=== PATIENT | male | born 1985 | race Caucasian/White ===

== ENCOUNTER 2016-07-28 19:12 | Emergency (ER) | payer OTHER ==
[~2016-07-28] VITALS: Ht 177.8 cm; Wt 90.3 kg
[~2016-07-28 19:12] MED LIST: AMPH20TA2 PO; ATV/1 PO; BUSP-8 PO; HYDR-389 PO; HYOS1TAB PO; INDSR/120 PO; LAMO25TA PO; PRT40 PO; SUMA20SP; WLLSR/300 PO
[2016-07-28 19:23] VITALS: TEMP 37; Ht 177.8 cm; Wt 90.3 kg
[2016-07-28] MEDS ORDERED: PROMETHAZINE HCL INJ 25 MG/ML 1 ML VIAL IM STA (19:40)
[2016-07-28] MEDS ORDERED: KETOROLAC TROMETHAMINE 60 MG/2 ML VIAL IM STA (19:40)
[2016-07-28] MEDS ORDERED: DEXAMETHASONE SOD INJ 10 MG/ML VIAL IM ONE (19:45)
--- NOTE | 2016-07-28 19:48 | EMERGENCY ROOM VISIT NOTE ---
History Report prepared by Zack: Raul Yang Under the Supervision of: Dr. Cihki Luciano D.O. First contact with patient: 19:30 Chief Complaint: HEADACHE Stated Complaint: MIGRAINE,NAUSEA History of Present Illness The patient is a 31 year old male who presents to the Emergency Room with complaints of persistent migraine that started last night. He was unable to sleep last night and the discomfort persisted throughout the day today. The patient also complains of nausea and numbness around his left eye. The patient notes that he has a history of migraines for the past 3-4 years and is typically able to manage them at home. The patient presented to the ED this evening because his head pain and nausea was worse than normal. This is the first migraine that he has had to come to the ED for managing his symptoms. The patient has tried numerous medications and treatments for his migraine without much relief. He denies fever. Source of History: patient Onset: last night Position: head Timing: other (persistent) Associated Symptoms: + nausea, No fevers Note: Other associated symptoms: numbness around left eye Review of Systems See HPI for pertinent positives & negatives. A total of 10 systems reviewed and were otherwise negative. Past Medical & Surgical Medical Problems: (1) Acid reflux (2) Anxiety (3) Attention deficit hyperactivity disorder (4) Encounter for removal of sutures (5) Foreign body, eye (6) Foreign body, eye (7) Gastroesophageal reflux disease (8) Injury of right foot (9) IRRITABLE BOWEL SYNDROME (10) Kidney stone (11) Kidney stone (12) Laceration of left foot (13) Laceration of left foot (14) Urinary retention Family History FH: cancer FH: diabetes mellitus FH: gallbladder disease FH: heart disease FH: hypertension FH: lung disease FH: seizures No significant family history Social History Smoking Status: Never Smoker Alcohol Use: none Drug Use: none Marital Status: Housing Status: lives with family Occupation Status: disabled Current/Historical Medications Scheduled Amphetamine-Dextroamphetamine 10MG (Adderall Xr 10MG), 10 MG PO DAILY Amphetamine-Dextroamphetamine 30MG (Adderall Xr 30MG), 30 MG PO DAILY Buspirone Hcl (Buspirone Hcl), 10 MG PO BID Dexlansoprazole (Dexilant), 30 MG PO DAILY Hydroxyzine Hcl (Atarax), 20 MG PO HS L-Methylfolate (L-Methylfolate), 15 MG PO DAILY Lamotrigine (Lamictal), 25 MG PO BID Propranolol La (Inderal La), 120 MG PO QAM Ropinirole Hydrochloride (Requip), 0.5 MG PO BID Scheduled PRN Hydroxyzine HCl (Hydroxyzine HCl), 5-10 MG PO Q4 PRN for Anxiety Sumatriptan Succinate (Imitrex Nasal Kopperl), 1 SPRAY NA UD PRN for Migraine Allergies Coded Allergies: Tramadol (Unverified Allergy, Intermediate, HALLUCINATIONS, 07/28/16) Hydrocodone (Verified Adverse Reaction, Unknown, "SEES LITTLE GREEN MARTAINS, ROOM SPINS", 07/28/16) Physical Exam Vital Signs Date Time Temp Pulse Resp B/P Pulse Ox O2 Delivery O2 Flow Rate FiO2 07/28/16 20:28 73 18 119/82 96 Room Air 07/28/16 19:23 37.0 77 18 133/88 95 Room Air Physical Exam GENERAL: Patient is awake alert in no acute distress patient is resting comfortably and showing no signs of anxiety EYES: The conjunctivae are clear. The pupils are round and reactive. EARS, NOSE, MOUTH AND THROAT: The nose is without any evidence of any deformity. Mucous membranes are moist tongue is midline NECK: The neck is nontender and supple. RESPIRATORY: Normal respiratory effort is noted there is no evidence of wheezing rhonchi or rales CARDIOVASCULAR: Regular rate and rhythm noted there no murmurs rubs or gallops normal S1 normal S2 GASTROINTESTINAL: The abdomen is soft. Bowel sounds are present in all quadrants. Abdomen is nontender MUSCULOSKELETAL/EXTREMITIES: There is no evidence of gross deformity full range of motion is noted in the hips and shoulders SKIN: There is no obvious evidence of any rash. There are no petechiae, pallor or cyanosis noted. NEUROLOGIC: Patient is awake alert and oriented x3 strength is symmetric patellar reflexes are 2+ bilaterally Medical Decision & Procedures ER Provider Diagnostic Interpretation: X-ray results as stated below per interpretation by me and the radiologist. HEAD CT NONCONTRAST CT DOSE: 687.98 mGy.cm HISTORY: Left-sided headache. TECHNIQUE: Multiaxial CT images of the head were performed without the use of intravenous contrast. Automated exposure control was utilized for this study. Comparison: None. Findings: The paranasal sinuses and mastoid air cells are clear. The calvarium and skull base are intact. The ventricles and sulci are within normal limits. There is no mass, hematoma, midline shift, or acute infarct. Impression: No acute intracranial abnormality. Electronically signed by: Elliot Gonzalez M.D. 07/28/2016 8:15 PM Dictated Date/Time: 07/28/2016 8:11 PM Medications Administered Medications (Trade) Dose Ordered Sig/Kaden Route Start Time Stop Time Status Last Admin Dose Admin Promethazine HCl (Phenergan Inj) 25 mg NOW STAT IM 07/28/16 19:40 07/28/16 19:41 DC 07/28/16 19:54 25 MG Ketorolac Tromethamine (Toradol Inj) 60 mg NOW STAT IM 07/28/16 19:40 07/28/16 19:41 DC 07/28/16 19:56 60 MG Dexamethasone Sodium Phosphate (Decadron Inj) 10 mg NOW ONCE IM 07/28/16 19:45 07/28/16 19:46 DC 07/28/16 19:52 10 MG ED Course 193: The patient was evaluated in room A4. A complete history and physical examination were performed. 1939: Ordered Toradol Inj 60 mg IM, Phenergan Inj 25 mg IM. 1944: Ordered Decadron Inj 10 mg IM, Oxycodone HCl 1 homepack PO. 1999: Upon reevaluation, the patient is resting comfortably. I discussed the results and treatment plan with him. He verbalized agreement of the treatment plan. The patient was discharged home. Medical Decision Differential diagnosis: Etiologies such as migraine headache, meningitis, sinusitis, CO exposure, ICH, SAH, infection, tumor, headache, sinus thrombosis, arterial dissection, as well as others were entertained. Nursing notes reviewed. The patient is a 31-year-old male who presented to the emergency department for an evaluation of headache. The patient had a gradual onset of a headache which is consistent with his history of previous chronic headache syndrome. The patient tried his usual outpatient medication without relief. He presented to the emergency department this evening with worsening pain. The patient had no focal neurologic deficit. He had no meningismus or fever. He has not had neuro imaging in quite some time so CT the head was obtained. I discussed the patient' s radiographic studies with him. He was treated with medication for pain and nausea in the emergency department. On subsequent reevaluation he was feeling much better. He was encouraged to rest and avoid any strenuous activity. He was encouraged to continue all medications as prescribed. He was also encouraged to follow-up with his primary care physician this week for reevaluation but return to the emergency department immediately if symptoms change worsen or if the need arises. Impression Primary Impression: Migraine headache Scribe Attestation The scribe's documentation has been prepared under my direction and personally reviewed by me in its entirety. I confirm that the note above accurately reflects all work, treatment, procedures, and medical decision making performed by me. Departure Information Dispostion Home / Self-Care Referrals No Doctor, Assigned (PCP) Forms HOME CARE DOCUMENTATION FORM, IMPORTANT VISIT INFORMATION Patient Instructions A Signature Page, My [facility] Additional Instructions Continue all medications as prescribed. Call your doctor to schedule a follow- up appointment. Rest and avoid any strenuous activity. Return to the emergency department immediately if symptoms change worsen or if the need arises.
[2016-07-28] MEDS ORDERED: ATR10 PO (19:58)
--- NOTE | 2016-07-28 20:17 | DIAGNOSTIC IMAGING REPORT ---
HEAD CT NONCONTRAST CT DOSE: 687.98 mGy.cm HISTORY: Left-sided headache. TECHNIQUE: Multiaxial CT images of the head were performed without the use of intravenous contrast. Automated exposure control was utilized for this study. Comparison: None. Findings: The paranasal sinuses and mastoid air cells are clear. The calvarium and skull base are intact. The ventricles and sulci are within normal limits. There is no mass, hematoma, midline shift, or acute infarct. Impression: No acute intracranial abnormality. Electronically signed by: Elliot Gonzalez M.D. 07/28/2016 8:15 PM Dictated Date/Time: 07/28/2016 8:11 PM
[2016-07-28] MEDS ORDERED: OXYCODONE IR HOME PACK PO ONE (20:45)
[2016-07-28 20:55] VITALS: BP 136/83; PULSE 73; O2SAT 97
[2016-08-10] MEDS ORDERED: DEXL30CA5 PO (19:58)
[2016-08-10] MEDS ORDERED: AMPH30CA3 PO (19:58)
[2016-08-10] MEDS ORDERED: [UNRECOGNIZED DRUG - OTHER] PO (19:58)
[2016-08-10] MEDS ORDERED: AMPH10CA3 PO (19:58)
[2016-12-14] MEDS ORDERED: DULO60CA44 PO (08:12)
[2016-12-14] MEDS ORDERED: BUPR150T5 PO (08:12)
== END 2016-07-28 20:57 | disposition home or self-care (01) ==
LOC: C.EDB 19:12 → C.EDA 20:57
DX: G43.909 Migraine, unspecified, not intractable, without status migrainosus (principal); R11.0 Nausea; K21.9 Gastro-esophageal reflux disease without esophagitis; F41.9 Anxiety disorder, unspecified; F90.9 Attention-deficit hyperactivity disorder, unspecified type; K58.9 Irritable bowel syndrome, unspecified; Z87.442 Personal history of urinary calculi; Z87.828 Personal history of other (healed) physical injury and trauma; Z79.899 Other long term (current) drug therapy; Z88.5 Allergy status to narcotic agent; Z80.9 Family history of malignant neoplasm, unspecified; Z83.3 Family history of diabetes mellitus; Z83.79 Family history of other diseases of the digestive system; Z82.49 Family history of ischemic heart disease and other diseases of the circulatory system; Z82.0 Family history of epilepsy and other diseases of the nervous system

== ENCOUNTER 2016-08-10 20:38 | Emergency (ER) | payer OTHER ==
[~2016-08-10] VITALS: Ht 177.8 cm; Wt 91.8 kg
[~2016-08-10 20:38] MED LIST changes: +AMPH10CA3 PO; -AMPH20TA2 PO; +AMPH30CA3 PO; +ATR10 PO; -ATV/1 PO; +DEXL30CA5 PO; -HYOS1TAB PO; -PRT40 PO; -WLLSR/300 PO; +[UNRECOGNIZED DRUG - OTHER] PO
[2016-08-10 20:43] VITALS: TEMP 36.9; Ht 177.8 cm; Wt 91.8 kg
[2016-08-10] MEDS ORDERED: KETOROLAC TROMETHAMINE 30 MG/ML VIAL IV STA (20:56)
[2016-08-10] MEDS ORDERED: ACETAMINOPHEN 500 MG TAB PO STA (20:56)
[2016-08-10] MEDS ORDERED: SODIUM CHLORIDE 0.9% 1000ML 1,000 ML IV STA (20:56)
[2016-08-10] MEDS ORDERED: ONDANSETRON INJ 2 MG/ML 2 ML VIAL IV STA (20:56)
[2016-08-10 21:06] LABS: BASO % 0.3 %; BASO ABS # 0.02 K/uL (0-0.2); COMPLETE YES; EOS % 2.5 %; HEMATOCRIT 44.2 % (42-52); IG% 0.2 %; LYMPH % 32.9 %; LYMPH ABS # 1.95 K/uL (1.2-3.4); MEAN CELL VOLUME 89.7 fL (80-100); MEAN CORPUSCULAR HEMOGLOBIN 31.8 pg (25-34); MEAN CORPUSCULAR HGB CONC 35.5 g/dl (32-36); MEAN PLATELET VOLUME 10.3 fL (7.4-10.4); NEUT % 55.1 %; PLATELET COUNT 213 K/uL (130-400); RED BLOOD COUNT 4.93 M/uL (4.7-6.1); WHITE BLOOD COUNT 5.92 K/uL (4.8-10.8)
--- NOTE | 2016-08-10 21:14 | EMERGENCY ROOM VISIT NOTE ---
History Report prepared by Zack: Thom Cortes Under the Supervision of: Dr. Sarah Onofre M.D. First contact with patient: 20:47 Chief Complaint: FLANK PAIN Stated Complaint: PAIN IN LEFT SIDE, KIDNEY STONE? History of Present Illness The patient is a 31 year old male who presents to the Emergency Room with complaints of persistent left flank pain that started 2 days ago. He also complains of hematuria. The patient has a history of kidney stones, and his last one was 2 years ago. He also has a history of IBS and peptic ulcers. The patient believes he may be having another kidney stone. He has an appointment with his urologist in 10 days, but decided to come here due to his symptoms. Source of History: patient Onset: 2 days ago Position: other (left flank - pain) Timing: other (persistent) Associated Symptoms: + urinary symptoms (hematuria) Note: No other associated symptoms noted. Review of Systems See HPI for pertinent positives & negatives. A total of 10 systems reviewed and were otherwise negative. Past Medical & Surgical Medical Problems: (1) Acid reflux (2) Anxiety (3) Attention deficit hyperactivity disorder (4) Encounter for removal of sutures (5) Foreign body, eye (6) Foreign body, eye (7) Gastroesophageal reflux disease (8) Injury of right foot (9) IRRITABLE BOWEL SYNDROME (10) Kidney stone (11) Kidney stone (12) Laceration of left foot (13) Laceration of left foot (14) Urinary retention Family History FH: cancer FH: diabetes mellitus FH: gallbladder disease FH: heart disease FH: hypertension FH: lung disease FH: seizures No significant family history Social History Smoking Status: Current Every Day Smoker Alcohol Use: none Drug Use: none Marital Status: Housing Status: lives with family Occupation Status: disabled Current/Historical Medications Scheduled Amphetamine-Dextroamphetamine 10MG (Adderall Xr 10MG), 10 MG PO QAM Amphetamine-Dextroamphetamine 30MG (Adderall Xr 30MG), 30 MG PO QAM Bupropion HCl (Bupropion HCl Xl), 300 MG PO QAM Buspirone HCl (Buspirone HCl), 10 MG PO BID Dexlansoprazole (Dexilant), 30 MG PO DAILY L-Methylfolate (L-Methylfolate), 15 MG PO DAILY Lamotrigine (Lamotrigine), 25 MG PO BID Propranolol Hcl (Propranolol Hcl Er), 120 MG PO QAM Tamsulosin Hcl (Flomax), 0.4 MG PO DAILY Scheduled PRN Ibuprofen (Motrin), 600 MG PO Q6H PRN for Pain Ondansetron Hcl (Zofran), 4 MG PO Q8H PRN for Nausea Ropinirole Hydrochloride (Requip), 0.5 MG PO BID PRN for Restless Legs Sumatriptan Succinate (Sumatriptan), 1 SPRAY NA UD PRN for Migraine Trazodone Hcl (Trazodone), 25-50 MG PO HS PRN for Sleep Allergies Coded Allergies: Tramadol (Unverified Allergy, Intermediate, HALLUCINATIONS, 07/28/16) Hydrocodone (Verified Adverse Reaction, Unknown, "SEES LITTLE GREEN MARTAINS, ROOM SPINS", 07/28/16) Physical Exam Vital Signs Date Time Temp Pulse Resp B/P Pulse Ox O2 Delivery O2 Flow Rate FiO2 08/10/16 22:33 84 16 126/78 99 08/10/16 20:43 36.9 92 18 139/82 95 Room Air Physical Exam CONSTITUTIONAL: Moderate painful distress. HEENT: No icterus, moist mucous membranes NECK: No meningismus, trachea is midline. CARDIOVASCULAR: Regular rate, normal perfusion RESPIRATORY: Unlabored breathing. Clear to auscultation. GASTROINTESTINAL: Non-tender GENITOURINARY: Moderate left flank tenderness. MUSCULOSKELETAL: Full range of motion NEUROLOGIC: No acute gross focal deficits. PSYCHIATRIC: Normal affect SKIN: Normal for ethnicity. Medical Decision & Procedures ER Provider Diagnostic Interpretation: US results as stated below per my review and radiologist interpretation. EXAMINATION: RENAL ULTRASOUND CLINICAL HISTORY: Left flank pain COMPARISON STUDY: KUB dated 07/19/2015 FINDINGS: The right kidney measures 10.1 cm. The left kidney measures 10.4 cm. There is no evidence of hydronephrosis. There are no renal masses. No bladder abnormalities are visualized. Bilateral ureteral jets were visualized. Incidental note is made of increased echogenicity of the liver, possibly secondary to hepatic steatosis IMPRESSION : 1. No renal masses identified 2. No evidence of hydronephrosis. Bilateral ureteral jets were visualized. Electronically signed by: Sp Alvarado M.D. 08/10/2016 10:25 PM Dictated Date/Time: 08/10/2016 10:23 PM Laboratory Results 08/10/16 20:55 Red Blood Count 4.93, Mean Corpuscular Volume 89.7, Mean Corpuscular Hemoglobin 31.8, Mean Corpuscular Hemoglobin Concent 35.5, Mean Platelet Volume 10.3, Neutrophils (%) (Auto) 55.1, Lymphocytes (%) (Auto) 32.9, Monocytes (%) (Auto) 9.0, Eosinophils (%) (Auto) 2.5, Basophils (%) (Auto) 0.3, Neutrophils # (Auto) 3.26, Lymphocytes # (Auto) 1.95, Monocytes # (Auto) 0.53, Eosinophils # (Auto) 0.15, Basophils # (Auto) 0.02 08/10/16 20:55 Test 08/10/16 00:00 08/10/16 20:55 Urine Color YELLOW Urine Appearance CLEAR (CLEAR) Urine pH 6.0 (4.5-7.5) Urine Specific [place] 1.008 (1.000-1.030) Urine Protein NEG (NEG) Urine Glucose (UA) NEG (NEG) Urine Ketones NEG (NEG) Urine Occult Blood NEG (NEG) Urine Nitrite NEG (NEG) Urine Bilirubin NEG (NEG) Urine Urobilinogen NEG (NEG) Urine Leukocyte Esterase TRACE (NEG) Urine WBC (Auto) 1-5 /hpf (0-5) Urine RBC (Auto) 0-4 /hpf (0-4) Urine Hyaline Casts (Auto) 0 /lpf (0-5) Urine Epithelial Cells (Auto) 0-5 /lpf (0-5) Urine Bacteria (Auto) NEG (NEG) White Blood Count 5.92 K/uL (4.8-10.8) Red Blood Count 4.93 M/uL (4.7-6.1) Hemoglobin 15.7 g/dL (14.0-18.0) Hematocrit 44.2 % (42-52) Mean Corpuscular Volume 89.7 fL (80-100) Mean Corpuscular Hemoglobin 31.8 pg (25-34) Mean Corpuscular Hemoglobin Concent 35.5 g/dl (32-36) Platelet Count 213 K/uL (130-400) Mean Platelet Volume 10.3 fL (7.4-10.4) Neutrophils (%) (Auto) 55.1 % Lymphocytes (%) (Auto) 32.9 % Monocytes (%) (Auto) 9.0 % Eosinophils (%) (Auto) 2.5 % Basophils (%) (Auto) 0.3 % Neutrophils # (Auto) 3.26 K/uL (1.4-6.5) Lymphocytes # (Auto) 1.95 K/uL (1.2-3.4) Monocytes # (Auto) 0.53 K/uL (0.11-0.59) Eosinophils # (Auto) 0.15 K/uL (0-0.5) Basophils # (Auto) 0.02 K/uL (0-0.2) RDW Standard Deviation 41.8 fL (36.4-46.3) RDW Coefficient of Variation 12.8 % (11.5-14.5) Immature Granulocyte % (Auto) 0.2 % Immature Granulocyte # (Auto) 0.01 K/uL (0.00-0.02) Anion Gap 10.0 mmol/L (3-11) Est Creatinine Clear Calc Drug Dose 108.8 ml/min Estimated GFR () 101.7 Estimated GFR (Non- 87.7 BUN/Creatinine Ratio 11.4 (10-20) Calcium Level 9.0 mg/dl (8.5-10.1) Labs reviewed by ED physician. Medications Administered Medications (Trade) Dose Ordered Sig/Kaden Route Start Time Stop Time Status Last Admin Dose Admin Acetaminophen 1000 mg 1,000 mg NOW STAT PO 08/10/16 20:56 08/10/16 20:59 DC 08/10/16 21:22 1,000 MG Sodium Chloride (Nss 1000ml) 1,000 ml @ 0 mls/hr Q0M STAT IV 08/10/16 20:56 08/10/16 20:59 DC 08/10/16 21:21 999 MLS/HR Ketorolac Tromethamine (Toradol Inj) 30 mg NOW STAT IV 08/10/16 20:56 08/10/16 20:59 DC 08/10/16 21:21 30 MG Ondansetron HCl (Zofran Inj) 4 mg NOW STAT IV 08/10/16 20:56 08/10/16 20:59 DC 08/10/16 21:21 4 MG Ondansetron HCl (ZOFRAN ODT 4MG Home Pack) 1 homepack UD ONCE PO 08/10/16 23:00 08/10/16 23:01 DC 08/10/16 23:00 1 HOMEPACK Oxycodone/ Acetaminophen (Percocet 5/ 325MG Home Pack) 1 homepack UD ONCE PO 08/10/16 23:00 08/10/16 23:01 DC 08/10/16 23:01 1 HOMEPACK ED Course 2055: Ordered Zofran Inj 4 mg IV, Toradol Inj 30 mg IV, NSS 1000 ml @ 0 mls/hr Wide Open IV, Tylenol Tab 1000 mg PO. 2109: Past medical records reviewed. The patient was evaluated in room A10. A complete history and physical examination was performed. 2257: I reevaluated the patient and he is resting comfortably. The patient verbally expressed agreement and understanding of the treatment plan. The patient will be discharged. 2299: Ordered Percocet 5/325MG Home Pack 1 homepack PO, Zofran ODT 4MG Home Pack 1 homepack PO. Medical Decision Differential diagnoses include: kidney stone, pyelonephritis, musculoskeletal pain. 31-year-old presented to the emergency department for evaluation of intermittent left flank pain for several days to weeks worse tonight in the context of prior urolithiasis. He was noted to be in moderate distress with moderate left-sided flank pain and a negative review of systems. Given known history of stone and otherwise benign presentation decision made to obtain ultrasound rather than CT given the risks of radiation. There is no hydronephrosis or stone identified and CT and all labs including urine sample were normal and no blood was identified. Given his clinical features prescriptions for ibuprofen, Flomax and Zofran were written with Percocet home pack. Patient states he has follow-up appointment with Dr. Henley scheduled. Impression Primary Impression: Flank pain Scribe Attestation The scribe's documentation has been prepared under my direction and personally reviewed by me in its entirety. I confirm that the note above accurately reflects all work, treatment, procedures, and medical decision making performed by me. Departure Information Dispostion Home / Self-Care Prescriptions Tamsulosin Hcl (FLOMAX) 0.4 Mg Cap 0.4 MG PO DAILY, #10 CAP Prov: Sarah Onofre MD 08/10/16 Ondansetron Hcl (ZOFRAN) 4 Mg Tab 4 MG PO Q8H Y for Nausea, #20 TAB Prov: Sarah Onofre MD 08/10/16 Ibuprofen (MOTRIN) 600 Mg Tab 600 MG PO Q6H Y for Pain, #30 TAB TAKE WITH FOOD Prov: Sarah Onofre MD 08/10/16 Referrals No Doctor, Assigned (PCP) Forms HOME CARE DOCUMENTATION FORM, IMPORTANT VISIT INFORMATION Patient Instructions ED Flank Pain Uncertain Cause, My [facility]
[2016-08-10] MEDS ORDERED: ROPI0.5T PO (21:16)
[2016-08-10 21:32] LABS: BUN/CREATININE RATIO 11.4 (10-20); CREATININE 1.1 mg/dl (0.60-1.40); POTASSIUM 3.9 mmol/L (3.5-5.1)
[2016-08-10] MEDS ORDERED: PROP120C PO (21:33)
[2016-08-10] MEDS ORDERED: LMC25 PO (21:33)
[2016-08-10] MEDS ORDERED: TRAZ50TA35 PO (21:33)
[2016-08-10] MEDS ORDERED: WLLXL300 PO (21:33)
[2016-08-10] MEDS ORDERED: BSP/10 PO (21:33)
[2016-08-10] MEDS ORDERED: [UNRECOGNIZED DRUG - OTHER] (21:33)
--- NOTE | 2016-08-10 22:27 | DIAGNOSTIC IMAGING REPORT ---
EXAMINATION: RENAL ULTRASOUND CLINICAL HISTORY: Left flank pain COMPARISON STUDY: KUB dated 07/19/2015 FINDINGS: The right kidney measures 10.1 cm. The left kidney measures 10.4 cm. There is no evidence of hydronephrosis. There are no renal masses. No bladder abnormalities are visualized. Bilateral ureteral jets were visualized. Incidental note is made of increased echogenicity of the liver, possibly secondary to hepatic steatosis IMPRESSION : 1. No renal masses identified 2. No evidence of hydronephrosis. Bilateral ureteral jets were visualized. Electronically signed by: Sp Alvarado M.D. 08/10/2016 10:25 PM Dictated Date/Time: 08/10/2016 10:23 PM
[2016-08-10 22:33] VITALS: BP 126/78; PULSE 84; O2SAT 99
[2016-08-10 22:46] LABS: URINE APPEARANCE CLEAR (CLEAR); URINE BILIRUBIN NEG (NEG); URINE COLOR YELLOW; URINE EPITHELIAL CELL AUTO 0-5 /lpf (0-5); URINE NITRITE NEG (NEG); URINE SPECIFIC GRAVITY 1.008 (1.000-1.030); UROBILINOGEN NEG (NEG); ZZUR CULT IF INDIC CLEAN CATCH NO
[2016-08-10 22:47] LABS: MANUAL MICROSCOPIC REQUIRED? NO; REVIEW REQ? NO
[2016-08-10] MEDS ORDERED: IBUP-1450 PO (22:52)
[2016-08-10] MEDS ORDERED: ONDA4TAB46 PO (22:54)
[2016-08-10] MEDS ORDERED: TAMS0.4C38 PO (22:55)
[2016-08-10] MEDS ORDERED: PERCOCET HOME PACK PO ONE (23:00)
[2016-08-10] MEDS ORDERED: ONDANSETRON HOME PACK 4MG OD TAB PO ONE (23:00)
[2016-12-14] MEDS ORDERED: DULO60CA44 PO (08:12)
[2016-12-14] MEDS ORDERED: BUPR150T5 PO (08:12)
== END 2016-08-10 23:02 | disposition home or self-care (01) ==
LOC: C.EDB 20:40 → C.EDA 23:02
DX: R10.9 Unspecified abdominal pain (principal); K21.9 Gastro-esophageal reflux disease without esophagitis; F41.9 Anxiety disorder, unspecified; F90.9 Attention-deficit hyperactivity disorder, unspecified type; K58.9 Irritable bowel syndrome, unspecified; Z87.442 Personal history of urinary calculi; F17.210 Nicotine dependence, cigarettes, uncomplicated; Z79.899 Other long term (current) drug therapy

== ENCOUNTER → 2016-08-20 | Outpatient (CLI) | payer OTHER ==
[~2016-08-20] MED LIST changes: +ALFU10TA30 PO; -ATR10 PO; +BSP/10 PO; +BUPR150T5 PO; +BUPRTAB51 PO; -BUSP-8 PO; +CYM/30 PO; +DICY10CA12 PO; +DULO60CA44 PO; +FOLITAB19 PO; -HYDR-389 PO; +IBUP-1450 PO; -INDSR/120 PO; -LAMO25TA PO; +LMC25 PO; +ONDA4TAB46 PO; +OXYC-57 PO; +OXYC1TAB3 PO; +PROP120C PO; +ROPI0.5T PO; +SULF800T23 PO; -SUMA20SP; +TAMS0.4C38 PO; +TRAZ50TA35 PO; +WLLXL300 PO; +[UNRECOGNIZED DRUG - OTHER]
== END | disposition home or self-care (01) ==
LOC: C.LABSPEC 17:20
PROVIDERS: ATTEND Nurse Practitioner Adult Health
DX: R10.9 Unspecified abdominal pain (principal)

== ENCOUNTER → 2016-08-20 | Outpatient (CLI) | payer OTHER ==
--- NOTE | 2016-08-20 14:10 | DIAGNOSTIC IMAGING REPORT ---
KUB CLINICAL HISTORY: Urinary retention. FINDINGS: 2 AP supine abdominal radiograph is are compared to study dated 07/19/2015 and correlated with abdominal CT dated 07/25/2014. There is a nonobstructed abdominal bowel gas pattern. There is moderate to severe colonic fecal retention. There is no radiographic evidence of nephrolithiasis. Small phleboliths in the pelvis are unchanged. The bony structures appear intact. IMPRESSION: 1. There is no radiographic evidence of nephrolithiasis. 2. Moderate to severe constipation. Electronically signed by: Luigi Contreras M.D. 08/20/2016 2:08 PM Dictated Date/Time: 08/20/2016 2:07 PM
== END | disposition home or self-care (01) ==
LOC: C.RAD 13:48
PROVIDERS: ATTEND Urology
DX: R33.9 Retention of urine, unspecified (principal); K59.00 Constipation, unspecified; R10.9 Unspecified abdominal pain

== ENCOUNTER → 2016-08-21 | Outpatient (CLI) | payer OTHER ==
--- NOTE | 2016-08-21 14:42 | DIAGNOSTIC IMAGING REPORT ---
CT SCAN OF THE ABDOMEN AND PELVIS WITHOUT CONTRAST CLINICAL HISTORY: Nephrolithiasis. Left flank pain COMPARISON STUDY: 07/25/2014 TECHNIQUE: CT scan of the abdomen and pelvis was performed from the lung bases to the proximal femurs. Images are reviewed in the axial, sagittal, and coronal planes. IV contrast was not administered for this examination. CT DOSE: 1058.24 mGy.cm FINDINGS: Lower chest: The heart is normal in size and configuration, without pericardial effusion. The lung bases and pleural spaces are clear. Liver: There is mild hepatic steatosis. No focal masses are visualized in this noncontrast study. Gallbladder: Unremarkable. Spleen: Normal in size and attenuation. Pancreas: Unremarkable. Adrenal glands: Unremarkable. Kidneys: No renal, ureteral, or bladder calculi are visualized. Bowel: There are no transition zones to indicate bowel obstruction. The appendix appears normal. There is no acute diverticulitis. Peritoneum: There is no intraperitoneal free air or abdominal ascites. Vasculature: The abdominal aorta is normal in course and caliber. Adenopathy: None. Pelvic viscera: The bladder, and pelvic viscera are unremarkable. Skeletal structures: No destructive osseous lesions are seen. IMPRESSION: 1. No renal, ureteral, or bladder calculi identified 2. No evidence of bowel obstruction. No evidence of free air 3. Normal appendix. No evidence of acute diverticulitis. 4. Mild hepatic steatosis Electronically signed by: Sp Alvarado M.D. 08/21/2016 2:41 PM Dictated Date/Time: 08/21/2016 2:33 PM
== END | disposition home or self-care (01) ==
LOC: C.CTS 14:05
PROVIDERS: ATTEND Nurse Practitioner Adult Health
DX: N20.0 Calculus of kidney (principal); R10.9 Unspecified abdominal pain

== ENCOUNTER 2017-02-22 15:01 | Emergency (ER) | payer OTHER ==
[~2017-02-22] VITALS: Ht 180.3 cm; Wt 91.8 kg
[~2017-02-22 15:01] MED LIST changes: -ALFU10TA30 PO; -BUPRTAB51 PO; -CYM/30 PO; -DICY10CA12 PO; -FOLITAB19 PO; -IBUP-1450 PO; -ONDA4TAB46 PO; -OXYC-57 PO; -OXYC1TAB3 PO; -SULF800T23 PO; -TAMS0.4C38 PO; -WLLXL300 PO
[2017-02-22 15:08] VITALS: BP 161/98; TEMP 36.4; Ht 180.3 cm; Wt 91.8 kg
[2017-02-22] MEDS ORDERED: DICY10CA12 PO (15:15)
[2017-02-22] MEDS ORDERED: KETOROLAC TROMETHAMINE 60 MG/2 ML VIAL IM STA (15:40)
[2017-02-22] MEDS ORDERED: ONDANSETRON 4MG OD TAB PO ONE (15:45)
[2017-02-22] MEDS ORDERED: GELATIN SPONGE 12-7MM EXT STA (16:01)
--- NOTE | 2017-02-22 16:07 | DIAGNOSTIC IMAGING REPORT ---
RIGHT THUMB 3 VIEWS CLINICAL HISTORY: Pain status post trauma. COMPARISON: March 07, 2016 DISCUSSION: No acute fractures or dislocations are visualized. There is a distal soft tissue injury. No radiopaque foreign bodies are evident IMPRESSION: Distal soft tissue injury. No fractures identified. Electronically signed by: Sp Alvarado M.D. 02/22/2017 4:05 PM Dictated Date/Time: 02/22/2017 4:05 PM
[2017-02-22] MEDS ORDERED: CYM/30 PO (16:15)
[2017-02-22] MEDS ORDERED: FOLITAB19 PO (16:15)
[2017-02-22] MEDS ORDERED: BUPRTAB51 PO (16:15)
--- NOTE | 2017-02-22 16:42 | EMERGENCY ROOM VISIT NOTE ---
ED Visit Note First contact with patient: 15:28 CHIEF COMPLAINT: Right thumb laceration HISTORY OF PRESENT ILLNESS: Patient is a left-hand dominant 32-year-old white male who presents to the emergency department for evaluation of a laceration to the tip of the right thumb. He was cutting trim with a table saw, when the piece of wood kicked back on him, injuring the right thumb. He applied a towel and pressure to the area and bleeding has been controlled. He describes a throbbing, 10/10 pain. He did not use any medications. Last tetanus was 5 years ago. He feels nauseous and queasy due to the bleeding. REVIEW OF SYSTEMS: Review of systems as per HPI. All other systems reviewed were negative. At least 6 systems reviewed. PMH: Electronic medical records are reviewed and summarized as above/below. See Problem List. SOCIAL HISTORY: Patient lives at home. Nonsmoker. PHYSICAL EXAM: Vital Signs: Reviewed Nurse's notes. There is a soft tissue skin avulsion of the tip of the right thumb, ulnar aspect. It extends through the distal portion of the nail, but not through the nailbed. There is no repairable laceration. The tip of the finger is tender to palpation. There is no pain over the IP joint. Range of motion is full. It is bleeding slowly and steadily and the rate of bleeding is not decreasing after pressure. EMERGENCY DEPARTMENT COURSE: Patient was medicated with Zofran 4 mg ODT and Toradol 60 mg IM. The patient reported that he could not take ibuprofen orally due to a history of severe stomach ulcer disease. X-rays of the right thumb were obtained and negative for acute bony abnormality. The right thumb was cleansed thoroughly with saline. There was no repairable laceration. No debridement was indicated. Surgi-foam was applied to the wound and then a bulky, compresses dressing. The bleeding was controlled. Wound care measures were discussed. The patient rated his pain a 5/10 at discharge. Differential diagnoses include avulsion, laceration, tuft fracture, nail bed injury, among others. Medication reconciliation: I attest that I have personally reviewed the patient' s current medication list. Blood pressure screening: Patient was found to have a slightly elevated blood pressure due to circumstances. I do not believe that the patient requires hypertension monitoring. RIGHT THUMB 3 VIEWS CLINICAL HISTORY: Pain status post trauma. COMPARISON: March 07, 2016 DISCUSSION: No acute fractures or dislocations are visualized. There is a distal soft tissue injury. No radiopaque foreign bodies are evident IMPRESSION: Distal soft tissue injury. No fractures identified. Problem List Medical Problems: (1) Abrasion of right thumb Status: Resolved (2) Acid reflux Status: Chronic (3) Anxiety Status: Chronic (4) Attention deficit hyperactivity disorder Status: Chronic (5) Encounter for removal of sutures Status: Resolved (6) Flank pain Status: Resolved (7) Foreign body, eye Status: Resolved (8) Foreign body, eye Status: Resolved (9) Gastroesophageal reflux disease Status: Chronic (10) Injury of right foot Status: Resolved (11) IRRITABLE BOWEL SYNDROME Status: Chronic (12) Kidney stone Status: Resolved (13) Kidney stone Status: Resolved (14) Laceration of left foot Status: Resolved (15) Laceration of left foot Status: Resolved (16) Migraine headache Status: Chronic (17) Right shoulder injury Status: Resolved (18) Urinary retention Status: Resolved Current/Historical Medications Scheduled Amphetamine-Dextroamphetamine 10MG (Adderall Xr 10MG), 10 MG PO QAM Amphetamine-Dextroamphetamine 30MG (Adderall Xr 30MG), 30 MG PO QAM Bupropion (Wellbutrin-Xl), 300 MG PO DAILY Buspirone HCl (Buspirone HCl), 10 MG PO BID Dexlansoprazole (Dexilant), 30 MG PO DAILY Dicyclomine Hcl (Dicyclomine Hcl), 1 TAB PO BID Duloxetine HCl (Cymbalta), 1 CAP PO DAILY Folic Acid-Vitamin B6-Vitamin (Folplex 2.2), 1 TAB PO DAILY L-Methylfolate (L-Methylfolate), 15 MG PO DAILY Lamotrigine (Lamotrigine), 25 MG PO DAILY Propranolol Hcl (Propranolol Hcl Er), 120 MG PO QAM Scheduled PRN Ropinirole Hydrochloride (Requip), 0.5 MG PO BID PRN for Restless Legs Sumatriptan Succinate (Sumatriptan), 1 SPRAY NA UD PRN for Migraine Trazodone Hcl (Trazodone), 25-50 MG PO HS PRN for Sleep Allergies Coded Allergies: Tramadol (Unverified Allergy, Intermediate, HALLUCINATIONS, 02/22/17) Hydrocodone (Verified Adverse Reaction, Unknown, "SEES LITTLE GREEN MARTAINS, ROOM SPINS", 02/22/17) Vital Signs Date Time Temp Pulse Resp B/P (MAP) Pulse Ox O2 Delivery O2 Flow Rate FiO2 02/22/17 17:05 99 20 96 Room Air 02/22/17 15:08 36.4 115 20 161/98 97 Room Air Medications Administered Medications (Trade) Dose Ordered Sig/Kaden Route Start Time Stop Time Status Last Admin Dose Admin Ketorolac Tromethamine (Toradol Inj) 60 mg NOW STAT IM 02/22/17 15:40 02/22/17 15:42 DC 02/22/17 16:16 60 MG Ondansetron HCl (Zofran Odt) 4 mg ONE ONCE PO 02/22/17 15:45 02/22/17 15:46 DC 02/22/17 16:15 4 MG Gelatin (Surgifoam Sponge 12-7MM (SMALL)) 1 ea ONE STAT EXT 02/22/17 16:01 02/22/17 16:02 DC 02/22/17 16:16 1 EA Departure Information Impression Primary Impression: Avulsion of skin of right thumb Referrals Luz Maria Zendejas M.D. (PCP) Patient Instructions My [facility] Additional Instructions Keep dressing in place for 48 hrs, then remove. Soak foam in water until it falls off easily, then clean wound daily, cover with an antibiotic ointment and keep covered until it heals. Return for any signs of infection (increasing redness, swelling, drainage). Ice and elevate for swelling and pain. Ibuprofen 600 mg and Tylenol 1000 mg every 6 hrs for pain.
[2017-02-22 17:05] VITALS: PULSE 99; O2SAT 96
== END 2017-02-22 17:05 | disposition home or self-care (01) ==
LOC: C.EDB 15:02 → C.EDD 17:05
DX: S61.011A Laceration without foreign body of right thumb without damage to nail, initial encounter (principal); W27.0XXA Contact with workbench tool, initial encounter; F41.9 Anxiety disorder, unspecified; K21.9 Gastro-esophageal reflux disease without esophagitis; F90.9 Attention-deficit hyperactivity disorder, unspecified type; K58.9 Irritable bowel syndrome, unspecified; Z87.828 Personal history of other (healed) physical injury and trauma; Z87.442 Personal history of urinary calculi; Z79.899 Other long term (current) drug therapy; Z88.5 Allergy status to narcotic agent

== ENCOUNTER 2017-03-02 13:55 | Emergency (ER) | payer OTHER ==
[~2017-03-02] VITALS: Ht 180.3 cm; Wt 89.6 kg
[~2017-03-02 13:55] MED LIST changes: -BUPR150T5 PO; +BUPRTAB51 PO; +CYM/30 PO; +DICY10CA12 PO; -DULO60CA44 PO; +FOLITAB19 PO
[2017-03-02 14:00] VITALS: BP 114/69; PULSE 120; TEMP 36.7; O2SAT 96; Ht 180.3 cm; Wt 89.6 kg
--- NOTE | 2017-03-02 14:17 | EMERGENCY ROOM VISIT NOTE ---
ED Visit Note First contact with patient: 14:01 CHIEF COMPLAINT: Wound recheck right thumb History of present illness: Patient is a left-hand dominant 32-year-old white male who returns to the emergency department requesting a recheck of his right thumb. Patient was seen by myself ED's ago, when he sustained a soft tissue avulsion to the tip of the right thumb. He had a Gelfoam dressing applied. He followed up with his PCP last week. He reports that he has been soaking the finger in soapy water, and changing the dressing every other day. He reports that he was trying to change the bandages this afternoon when the gauze got stuck. He wanted to come here to "get it checked out." REVIEW OF SYSTEMS: Review of systems as per HPI. All other systems reviewed were negative. At least 3 systems reviewed. PMH: Reviewed and unchanged from prior visit. SOCIAL HISTORY: Patient lives at home. PHYSICAL EXAM: Vital Signs: Reviewed Nurse's notes. MENTAL STATUS: Alert, oriented, and not in distress. SKIN: Examination of the tip of the right thumb show the prior avulsion to be well granulated over. The finger is slightly macerated, there is no purulent drainage appreciated., No erythema, induration or swelling. Range of motion is full. EMERGENCY DEPARTMENT COURSE: The patient was seen and evaluated as above. His dressing was removed by myself without difficulty. Wound appears to be healing well. The finger was soaked in a mixture of saline and hydrogen peroxide here, cleansed and dried thoroughly, then bacitracin and a light dressing were applied. Patient was encouraged to just gently clean the area with soap and water now and apply antibiotic ointment and a bandage. He was advised to stop soaking the finger, and was encouraged to remove the bandage and let the wound open to the air when he is not active. There is no signs of infection indicating antibiotic therapy. Problem List Medical Problems: (1) Abrasion of right thumb Status: Resolved (2) Acid reflux Status: Chronic (3) Anxiety Status: Chronic (4) Attention deficit hyperactivity disorder Status: Chronic (5) Encounter for removal of sutures Status: Resolved (6) Flank pain Status: Resolved (7) Foreign body, eye Status: Resolved (8) Foreign body, eye Status: Resolved (9) Gastroesophageal reflux disease Status: Chronic (10) Injury of right foot Status: Resolved (11) IRRITABLE BOWEL SYNDROME Status: Chronic (12) Kidney stone Status: Resolved (13) Kidney stone Status: Resolved (14) Laceration of left foot Status: Resolved (15) Laceration of left foot Status: Resolved (16) Migraine headache Status: Chronic (17) Right shoulder injury Status: Resolved (18) Urinary retention Status: Resolved Current/Historical Medications Scheduled Alfuzosin Hcl (Uroxatral), 10 MG PO QAM Amphetamine-Dextroamphetamine 10MG (Adderall Xr 10MG), 10 MG PO QAM Amphetamine-Dextroamphetamine 30MG (Adderall Xr 30MG), 30 MG PO QAM Bupropion (Wellbutrin-Xl), 300 MG PO DAILY Buspirone HCl (Buspirone HCl), 10 MG PO BID Dexlansoprazole (Dexilant), 30 MG PO DAILY Dicyclomine Hcl (Dicyclomine Hcl), 1 TAB PO BID Duloxetine HCl (Cymbalta), 1 CAP PO DAILY Folic Acid-Vitamin B6-Vitamin (Folplex 2.2), 1 TAB PO DAILY Lamotrigine (Lamotrigine), 25 MG PO DAILY Sulfa/Trimethoprim (Bactrim Ds 800MG/160MG), 1 TAB PO BID Tamsulosin Hcl (Flomax), 0.4 MG PO DAILY Scheduled PRN Ropinirole Hydrochloride (Requip), 0.5 MG PO BID PRN for Restless Legs Sumatriptan Succinate (Sumatriptan), 1 SPRAY NA UD PRN for Migraine Trazodone Hcl (Trazodone), 25-50 MG PO HS PRN for Sleep Allergies Coded Allergies: Tramadol (Unverified Allergy, Intermediate, HALLUCINATIONS, 03/02/17) Hydrocodone (Verified Adverse Reaction, Unknown, "SEES LITTLE GREEN MARTAINS, ROOM SPINS", 03/02/17) Vital Signs Date Time Temp Pulse Resp B/P (MAP) Pulse Ox O2 Delivery O2 Flow Rate FiO2 03/02/17 14:00 36.7 120 20 114/69 96 Room Air Departure Information Impression Primary Impression: Encounter for wound re-check Referrals No Doctor, Assigned (PCP) Patient Instructions My [facility] Additional Instructions Clean the area daily with mild soap and water. Cover with a thin layer of antibiotic ointment and a bandage when active, but may remove the bandage and leave open to the air when resting. Follow-up with your PCP as needed.
[2017-03-02] MEDS ORDERED: TAMS0.4C38 PO (14:26)
[2017-03-02] MEDS ORDERED: SULF800T23 PO (14:26)
[2017-03-02] MEDS ORDERED: ALFU10TA30 PO (14:26)
== END 2017-03-02 14:40 | disposition home or self-care (01) ==
LOC: C.EDB 13:55 → C.EDD 14:40
DX: Z48.00 Encounter for change or removal of nonsurgical wound dressing (principal); S60.311D Abrasion of right thumb, subsequent encounter; X58.XXXD Exposure to other specified factors, subsequent encounter; K21.9 Gastro-esophageal reflux disease without esophagitis; F41.9 Anxiety disorder, unspecified; F90.9 Attention-deficit hyperactivity disorder, unspecified type; K58.9 Irritable bowel syndrome, unspecified

== ENCOUNTER → 2017-04-03 | Outpatient (CLI) | payer OTHER ==
[~2017-04-03] MED LIST changes: +ALFU10TA30 PO; -CYM/30 PO; +OXYC-57 PO; +OXYC1TAB3 PO; -PROP120C PO; +TAMS0.4C38 PO; -[UNRECOGNIZED DRUG - OTHER] PO
--- NOTE | 2017-04-03 14:07 | DIAGNOSTIC IMAGING REPORT ---
MRI OF THE LUMBAR SPINE WITHOUT CONTRAST CLINICAL HISTORY: Worsening lumbar spine pain. Left leg numbness. COMPARISON STUDY: No previous studies for comparison. TECHNIQUE: Utilizing a 1.5 Ashlie magnet and dedicated coil, multiplanar, multiecho imaging of the lumbar spine was performed without IV contrast. FINDINGS: For purposes of numbering on this exam, the L5-S1 disc space is assigned to axial image 28 of 30. When utilizing this numbering scheme, L5 is partially sacralized. No intracanalicular mass or fluid collection is present. Conus terminates at the lower L2-L3 level. Paravertebral soft tissues are unremarkable. No marrow replacement is present. There is no marrow edema. L1-2: The central canal and neural foramina patent. L2-3: The central canal and neural foramina patent. L3-4: Central canal and neural foramen are patent. L4-5: There is a small central disc protrusion. There is mild narrowing of the central canal and lateral recesses. The neural foramen are patent. L5-S1: There is a small left paracentral disc protrusion with mild narrowing of the left lateral recess. Neural foramen are patent. IMPRESSION: 1. Small central disc protrusion at L4-L5 that results in mild narrowing of the central canal and lateral recesses. 2. Small left paracentral disc protrusion at L5-S1 that results in mild narrowing of the left lateral recess. 3. Borderline low lying conus which terminates at the L2-L3 level. 4. Transitional vertebra at the lumbosacral junction. Please see above numbering scheme for the lumbar spine. L5 is partially sacralized when utilizing this numbering scheme. Electronically signed by: Osman Garcia M.D. 04/03/2017 2:06 PM Dictated Date/Time: 04/03/2017 1:50 PM
== END | disposition home or self-care (01) ==
LOC: C.MRI 13:04
PROVIDERS: ATTEND Orthopaedic Surgery Orthopaedic Surgery of the Spine
DX: M51.26 Other intervertebral disc displacement, lumbar region (principal); M99.73 Connective tissue and disc stenosis of intervertebral foramina of lumbar region; M53.86 Other specified dorsopathies, lumbar region

== ENCOUNTER 2017-04-13 21:52 | Emergency (ER) | payer OTHER ==
[~2017-04-13] VITALS: Ht 177.8 cm; Wt 90.2 kg
[~2017-04-13 21:52] MED LIST changes: -OXYC-57 PO; -OXYC1TAB3 PO
[2017-04-13 21:54] VITALS: TEMP 36.8; Ht 177.8 cm; Wt 90.2 kg
[2017-04-13] MEDS ORDERED: OXYC1TAB3 PO (22:29)
[2017-04-13] MEDS ORDERED: OXYCODONE IR HOME PACK PO ONE (22:30)
--- NOTE | 2017-04-13 22:31 | EMERGENCY ROOM VISIT NOTE ---
History First contact with patient: 22:13 Chief Complaint: BACK PAIN Stated Complaint: BACK/LEG GOING NUMB,PINCHED NERVE History of Present Illness The patient is a 32 year old male who presents to the Emergency Room with complaints of low back pain. The patient states that he has had issues with pain in the low back. The pain radiates into his legs on occasion. He also states that he occasionally has numbness in the left leg. This has been ongoing for several weeks and he has seen his primary care provider and orthopedic spine for this. He had an MRI last week which showed a pinched nerve. He is scheduled for surgery in a few weeks. He states that he has been having a hard time sleeping due to the pain. He has also been nauseous due to the pain. He rates his discomfort a 10/10. The patient is not taking any medications at home for the pain. He reports he is not able to take Tylenol or ibuprofen due to a stomach ulcer. He denies any bowel/bladder incontinence, urinary retention or weakness in the legs. He denies any fevers/chills. Review of Systems A complete 10 point review of systems was reviewed with the patient with pertinent positives and negatives as per history of present illness. All else were negative. Past Medical/Surgical History Medical Problems: (1) Abrasion of right thumb (2) Acid reflux (3) Anxiety (4) Attention deficit hyperactivity disorder (5) Encounter for removal of sutures (6) Flank pain (7) Foreign body, eye (8) Foreign body, eye (9) Gastroesophageal reflux disease (10) Injury of right foot (11) IRRITABLE BOWEL SYNDROME (12) Kidney stone (13) Kidney stone (14) Laceration of left foot (15) Laceration of left foot (16) Migraine headache (17) Right shoulder injury (18) Urinary retention Family History FH: cancer FH: diabetes mellitus FH: gallbladder disease FH: heart disease FH: hypertension FH: lung disease FH: seizures No significant family history Social History Smoking Status: Never Smoker Alcohol Use: none Drug Use: none Marital Status: Housing Status: lives with family Occupation Status: disabled Current/Historical Medications Scheduled Alfuzosin Hcl (Uroxatral), 10 MG PO QAM Amphetamine-Dextroamphetamine 10MG (Adderall Xr 10MG), 10 MG PO QAM Amphetamine-Dextroamphetamine 30MG (Adderall Xr 30MG), 30 MG PO QAM Bupropion (Wellbutrin-Xl), 300 MG PO DAILY Buspirone HCl (Buspirone HCl), 10 MG PO BID Dicyclomine Hcl (Dicyclomine Hcl), 1 TAB PO BID Folic Acid-Vitamin B6-Vitamin (Folplex 2.2), 1 TAB PO DAILY Lamotrigine (Lamotrigine), 25 MG PO DAILY Tamsulosin Hcl (Flomax), 0.4 MG PO DAILY Scheduled PRN Oxycodone Ir (Roxicodone Ir), 1 TAB PO Q4H PRN for Pain Ropinirole Hydrochloride (Requip), 0.5 MG PO BID PRN for Restless Legs Sumatriptan Succinate (Sumatriptan), 1 SPRAY NA UD PRN for Migraine Trazodone Hcl (Trazodone), 25-50 MG PO HS PRN for Sleep Physical Exam Vital Signs Date Time Temp Pulse Resp B/P (MAP) Pulse Ox O2 Delivery O2 Flow Rate FiO2 04/13/17 22:54 86 136/85 98 04/13/17 21:54 36.8 86 20 147/95 99 Room Air Physical Exam VITALS: Vitals are noted on the nurse's note and reviewed by myself. Vital signs stable. GENERAL: This is a 32-year-old male, in no acute distress, nondiaphoretic, well- developed well-nourished. SKIN: No rashes noted. HEENT: Normocephalic. PERRLA. EOMI. Neck is supple without nuchal rigidity. HEART: Regular rate and rhythm without murmurs gallops or rubs. LUNGS: Clear to auscultation bilaterally without wheezes, rales or rhonchi. ABDOMEN: Soft, nontender to palpation. MUSCULOSKELETAL: There is vague tenderness to the lumbar region. No focal tenderness. Full range of motion of bilateral lower extremities with strength 5 /5. NEURO: Patient was alert and oriented to person place and time. Normal sensation to light and sharp touch. Patellar reflexes 2+ bilaterally. Medical Decision & Procedures Medical Decision Differential diagnosis includes cauda equina syndrome, cord compression, disc herniation, muscle spasm, lumbar strain, epidural abscess, malignancy, transverse myelitis, urinary tract infection, colitis, diverticulitis, kidney stone, among others. The patient was evaluated as above. He presents complaining of back pain. The patient has had this pain for several weeks and has been worked up by his primary care provider in orthopedic spine. He is scheduled for surgery. There is nothing to suggest cauda equina syndrome or cord compression. There has been no change in the symptoms, but he is having persistent pain and states he is not able to take [id number] medications. I did review the patient's record in the PDMP. He has not received any narcotic prescriptions recently. I do feel it is reasonable to give the patient is very short course of pain medication until he is able to follow up with his surgeon this week as scheduled. The patient was advised that the emergency department is not able to treat his chronic back pain. Conservative measures were discussed with the patient. He verbalized understanding my assessment and treatment plan and was discharged home in good condition. The patient was independently evaluated by Dr. Hawley, ED attending physician, who agreed with my assessment and treatment plan. [place] Drug Monitoring Program Search Results: patient reviewed within database, no issues identified Medication Reconcilliation Current Medication List: was personally reviewed by me Blood Pressure Screening Patient's blood pressure: Elevated blood pressure Blood pressure disposition: Elevated BP felt to be situational Impression Primary Impression: Lumbar back pain Departure Information Dispostion Home / Self-Care Condition GOOD Prescriptions Oxycodone Ir (Roxicodone Ir) 5 Mg Tab 1 TAB PO Q4H Y for Pain, #10 TAB For Initial Treatment Prov: Chela Peters ., JUNIOR 04/13/17 Referrals Luz Maria Zendejas M.D. (PCP) Patient Instructions My [facility] Additional Instructions You have been treated in the Emergency Department for Back Pain. You have been prescribed Oxy IR to be used for pain control. This is a narcotic medication. You cannot drive or consume alcohol while on this medicine. This medicine should only be used for pain that cannot be controlled with over-the- counter pain medicines. Follow-up with your primary care provider and your orthopedic provider for any further treatment. The emergency department is not able to treat your ongoing back pain. Return to the Emergency Department if your current symptoms worsen despite treatment course outlined above, or if you develop any of the following symptoms : intractable pain despite aforementioned treatment course, loss of control of your bowel or bladder, numbness or tingling in your groin, or development of a fever.
[2017-04-13 22:54] VITALS: BP 136/85; PULSE 86; O2SAT 98
== END 2017-04-13 22:45 | disposition home or self-care (01) ==
LOC: C.EDB 21:52
DX: M54.5 Low back pain (principal); K21.9 Gastro-esophageal reflux disease without esophagitis; F41.9 Anxiety disorder, unspecified; F90.9 Attention-deficit hyperactivity disorder, unspecified type; K58.9 Irritable bowel syndrome, unspecified; Z87.442 Personal history of urinary calculi; Z80.9 Family history of malignant neoplasm, unspecified; Z83.3 Family history of diabetes mellitus; Z82.49 Family history of ischemic heart disease and other diseases of the circulatory system; Z82.0 Family history of epilepsy and other diseases of the nervous system; Z79.899 Other long term (current) drug therapy

== ENCOUNTER 2017-04-19 22:24 | Emergency (ER) | payer OTHER ==
[~2017-04-19] VITALS: Ht 175.3 cm; Wt 89.0 kg
[~2017-04-19 22:24] MED LIST changes: -DEXL30CA5 PO; +OXYC1TAB3 PO
[2017-04-19 22:34] VITALS: TEMP 37; Ht 175.3 cm; Wt 89.0 kg
[2017-04-19] MEDS ORDERED: OXYCODONE/ACETAMINOPHEN 5-325 TAB PO STA (22:49)
[2017-04-19] MEDS ORDERED: OXYC-57 PO (22:51)
[2017-04-19] MEDS ORDERED: PERCOCET HOME PACK PO ONE (23:00)
[2017-04-19 23:03] VITALS: BP 110/68; PULSE 99; O2SAT 98
--- NOTE | 2017-04-20 23:29 | EMERGENCY ROOM VISIT NOTE ---
History First contact with patient: 22:41 Chief Complaint: BACK PAIN Stated Complaint: BACK PAIN History of Present Illness The patient is a 32 year old male who presents to the Emergency Room with complaints of back pain for the past several hours. The patient has a history of chronic low back pain. He evidently had a surgical procedure performed by Dr. Boyle at [facility] this morning. The patient states the procedure went well and he was doing fine at the time of departure. He was given a prescription for Percocet to use at home, and when he went to the pharmacy he had difficulty filling the prescription. The patient was unsure what to do and now presents to the ER for evaluation. He has not had fever or chills. No chest pain, chest tightness, or shortness of breath. He does have some postoperative pain but no numbness or paresthesias. He is essentially here for relief of pain. He rates his discomfort an 8/10. Review of Systems More than 10 systems were reviewed and otherwise negative with the exception of history of present illness. Past Medical/Surgical History Medical Problems: (1) Abrasion of right thumb (2) Acid reflux (3) Anxiety (4) Attention deficit hyperactivity disorder (5) Encounter for removal of sutures (6) Flank pain (7) Foreign body, eye (8) Foreign body, eye (9) Gastroesophageal reflux disease (10) Injury of right foot (11) IRRITABLE BOWEL SYNDROME (12) Kidney stone (13) Kidney stone (14) Laceration of left foot (15) Laceration of left foot (16) Migraine headache (17) Right shoulder injury (18) Urinary retention Family History FH: cancer FH: diabetes mellitus FH: gallbladder disease FH: heart disease FH: hypertension FH: lung disease FH: seizures No significant family history Social History Smoking Status: Never Smoker Alcohol Use: none Drug Use: none Marital Status: Housing Status: lives with family Occupation Status: disabled Current/Historical Medications Scheduled Alfuzosin Hcl (Uroxatral), 10 MG PO QAM Amphetamine-Dextroamphetamine 10MG (Adderall Xr 10MG), 10 MG PO QAM Amphetamine-Dextroamphetamine 30MG (Adderall Xr 30MG), 30 MG PO QAM Bupropion (Wellbutrin-Xl), 300 MG PO DAILY Buspirone HCl (Buspirone HCl), 10 MG PO BID Dicyclomine Hcl (Dicyclomine Hcl), 1 TAB PO BID Folic Acid-Vitamin B6-Vitamin (Folplex 2.2), 1 TAB PO DAILY Lamotrigine (Lamotrigine), 25 MG PO DAILY Tamsulosin Hcl (Flomax), 0.4 MG PO DAILY Scheduled PRN Oxycodone Ir (Roxicodone Ir), 1 TAB PO Q4H PRN for Pain Oxycodone/Acetaminophen 5MG/325MG (Percocet 5MG/325MG), 1-2 TABS PO Q6 PRN for Pain Ropinirole Hydrochloride (Requip), 0.5 MG PO BID PRN for Restless Legs Sumatriptan Succinate (Sumatriptan), 1 SPRAY NA UD PRN for Migraine Trazodone Hcl (Trazodone), 25-50 MG PO HS PRN for Sleep Physical Exam Vital Signs Date Time Temp Pulse Resp B/P (MAP) Pulse Ox O2 Delivery O2 Flow Rate FiO2 04/19/17 23:03 99 18 110/68 98 04/19/17 22:34 37.0 104 18 106/66 98 Room Air Physical Exam VITALS: Vitals are noted on the nurse's note and reviewed by myself. Vital signs stable. GENERAL: Well-developed, well-nourished, White male who is laying on his right side in the ER bed. He is mildly uncomfortable on exam. NECK: Supple without nuchal rigidity. No lymphadenopathy. No thyromegaly. Cervical spine is nontender. HEART: Regular rate and rhythm without murmurs gallops or rubs. LUNGS: Clear to auscultation bilaterally without wheezes, rales or rhonchi. No retractions or accessory muscle use. ABDOMEN: Positive normal bowel sounds x 4. Soft, nontender, without masses or organomegaly. No guarding or rebound tenderness. MUSCULOSKELETAL: No muscle atrophy, erythema, or edema noted. Full range of motion without joint tenderness in all extremities. BACK: Mild paralumbar tenderness appreciated on examination. Surgical site appears well healing without fluctuance, significant drainage, or bleeding. No evidence of infection. NEURO: Patient was alert and oriented to person place and time. CN II through XII grossly intact. Deep tendon reflexes 2+ throughout. Medical Decision & Procedures Medications Administered Medications (Trade) Dose Ordered Sig/Kaden Route Start Time Stop Time Status Last Admin Dose Admin Oxycodone/ Acetaminophen (Percocet 5-325mg Tab) 2 tab NOW STAT PO 04/19/17 22:49 04/19/17 22:50 DC 04/19/17 23:01 2 TAB Oxycodone/ Acetaminophen (Percocet 5/ 325MG Home Pack) 1 homepack UD ONCE PO 04/19/17 23:00 04/19/17 23:01 DC 04/19/17 23:01 1 HOMEPACK ED Course Physical exam and history were performed. Nursing notes, EMR, and Medication List were personally reviewed. Patient appears to have low back pain after having back surgery this morning. The patient does not appear toxic on exam. He does not have signs of fever or infection. His wound from the surgery appears to be healing well. The patient' s primary concern is that he was not able to fill his Percocet prescription. He does have the prescription with him, and evidently the prescription was written by a physician bankruptcy legal assistant for initial therapy on narcotics. Evidently the pharmacies are not able to fill the initial prescription based on a physician bankruptcy legal assistant's signature, and physician will need to rewrite the prescription. I will provide the patient a short course of Percocet from here. The patient evidently has a follow-up appointment with his surgeon next week, and he should keep this appointment. He will need to contact them regarding the specifics of his pain medication. He was otherwise invited back to the ER if any new, worsening, or concerning symptoms. The chart was completed utilizing [employer] Speech Voice Recognition Software. Grammatical errors, random word insertions, pronoun errors, and incomplete sentences are an occasional consequence of this system due to software limitations, ambient noise, and hardware issues. Any formal questions or concerns about the content, text, or information contained within the body of this dictation should be directly addressed to the provider for clarification. . Medical Decision Differential diagnosis: Etiologies such as musculoskeletal, disc herniation, fracture, aortic disease, metastatic disease, cord compression, discitis, infection, renal colic, gastrointestinal, acute exacerbation of chronic back pain, sciatica, cauda equina, as well as others were entertained. Impression Primary Impression: Postoperative back pain Departure Information Dispostion Home / Self-Care Condition GOOD Prescriptions Oxycodone/Acetaminophen 5MG/325MG (PERCOCET 5MG/325MG) Tab 1-2 TABS PO Q6 Y for Pain, #15 TAB For Initial Treatment Prov: Casper Carey PA-C 04/19/17 Referrals Antonio Boyle M.D. Forms HOME CARE DOCUMENTATION FORM, IMPORTANT VISIT INFORMATION Patient Instructions My [facility] Additional Instructions You were seen and evaluated today on an emergency basis only. This is not a substitute for, or an effort to provide, complete comprehensive medical care. It is not possible to recognize and treat all injuries or illnesses in a single emergency department visit. For this reason it is recommended that you followup with your surgeon's office by telephone in the morning to arrange appropriate follow-up. Percocet 5/325mg ONE or TWO every 6 hours as needed for worsening breakthrough pain. Do not drink or drive on Percocet. This medication will likely make you tired. Do not take Percocet and Tylenol at the same time as both contain acetaminophen. Percocet may cause constipation. You may wish to take an over-the -counter stool softener like Colace if this occurs. You are welcome to return to the emergency department anytime with new, worsening, or concerning symptoms.
== END 2017-04-19 23:04 | disposition home or self-care (01) ==
LOC: C.EDB 22:24
DX: G89.18 Other acute postprocedural pain (principal); M54.5 Low back pain; G89.29 Other chronic pain; F90.9 Attention-deficit hyperactivity disorder, unspecified type; K58.9 Irritable bowel syndrome, unspecified; K21.9 Gastro-esophageal reflux disease without esophagitis; F41.9 Anxiety disorder, unspecified; Z79.899 Other long term (current) drug therapy; Z87.442 Personal history of urinary calculi; Z87.448 Personal history of other diseases of urinary system; Z87.828 Personal history of other (healed) physical injury and trauma; Z82.0 Family history of epilepsy and other diseases of the nervous system; Z82.49 Family history of ischemic heart disease and other diseases of the circulatory system; Z83.3 Family history of diabetes mellitus; Z83.6 Family history of other diseases of the respiratory system; Z83.79 Family history of other diseases of the digestive system

== ENCOUNTER 2017-04-20 12:21 | Emergency (ER) | payer OTHER ==
[~2017-04-20] VITALS: Ht 180.3 cm; Wt 103.8 kg
[~2017-04-20 12:21] MED LIST changes: +OXYC-57 PO
[2017-04-20 12:26] VITALS: TEMP 36.9; Ht 180.3 cm; Wt 103.8 kg
[2017-04-20] MEDS ORDERED: MoRPHine SULFATE 10 MG/ML CARP/VIAL IV STA (12:56)
[2017-04-20] MEDS ORDERED: ONDANSETRON INJ 2 MG/ML 2 ML VIAL IV STA (12:56)
[2017-04-20] MEDS ORDERED: SODIUM CHLORIDE 0.9% 1000ML 1,000 ML IV STA (12:56)
[2017-04-20 13:33] LABS: BASO % 0.1 %; BASO ABS # 0.01 K/uL (0-0.2); COMPLETE YES; EOS % 0.3 %; HEMATOCRIT 48.8 % (42-52); IG% 0.2 %; LYMPH % 7.8 %; MEAN CELL VOLUME 92.8 fL (80-100); MEAN CORPUSCULAR HEMOGLOBIN 30.8 pg (25-34); MEAN CORPUSCULAR HGB CONC 33.2 g/dl (32-36); MEAN PLATELET VOLUME 10.8 fL (7.4-10.4); MONO % 13.3 %; NEUT % 78.3 %; PLATELET COUNT 189 K/uL (130-400); RED BLOOD COUNT 5.26 M/uL (4.7-6.1)
[2017-04-20 13:46] LABS: BUN/CREATININE RATIO 7.5 (10-20); CALCIUM 9.4 mg/dl (8.5-10.1); CREATININE 0.96 mg/dl (0.60-1.40); POTASSIUM 3.9 mmol/L (3.5-5.1)
--- NOTE | 2017-04-20 14:00 | DIAGNOSTIC IMAGING REPORT ---
LUMBAR SPINE 2 OR 3 VIEWS CLINICAL HISTORY: 32 years-old Male presenting with lower back pain recent surg . TECHNIQUE: Frontal, lateral, and coned in lateral views of the lumbar spine were obtained. COMPARISON: MR from 04/03/2017. FINDINGS: Normal lumbar lordosis. No scoliosis. Vertebral bodies maintain normal height and alignment. Intervertebral disc spaces preserved. No significant degenerative change is radiographically evident. No osseous neural foraminal narrowing. No radiographic evidence of acute fracture. No postsurgical change is evident. Nonobstructive bowel gas pattern with mild stool burden. IMPRESSION: Normal lumbar spine. The previously noted disc bulge at L4-5 on MR is not radiographically apparent. Electronically signed by: Cristobal Church M.D. 04/20/2017 1:59 PM Dictated Date/Time: 04/20/2017 1:57 PM
[2017-04-20] MEDS ORDERED: KETOROLAC TROMETHAMINE 30 MG/ML VIAL IV STA (14:20)
[2017-04-20] MEDS ORDERED: DEXAMETHASONE SOD INJ 10 MG/ML VIAL IV ONE (14:30)
[2017-04-20 14:45] VITALS: BP 140/69; PULSE 96; O2SAT 97
--- NOTE | 2017-04-20 18:51 | EMERGENCY ROOM VISIT NOTE ---
History Report prepared by Zack: Sheba Benitez Under the Supervision of: Dr. Trey Jasso D.O. First contact with patient: 12:47 Chief Complaint: BACK PAIN Stated Complaint: BACK PAIN History of Present Illness The patient is a 32 year old male who presents to the Emergency Room with complaints of persistent back pain since yesterday. He underwent lumbar spine surgery yesterday morning by Dr. Branch in [place]. He states he had 2 bulging discs and had "bone shaved back from the nerves". He reports "I'm in so much pain it's not funny". He rates his discomfort as a 10/10 in severity. Movement and palpation worsen his discomfort. He denies any fevers above 100.4 degrees. He denies any numbness or tingling in his legs or groin. He has not moved his bowels since the surgery. He tried to walk today, but was unable to because of pain. No numbness in groin. Denies any weakness in legs. The patient was seen here in the ED last night for pain. He received 1 Percocet at 2130, then 2 at 2300. He states they provided minimal relief. The patient denies any headache , change in vision, fevers, chest pain, shortness of breath, nausea, vomiting, diarrhea, pain with urination, and melena. Source of History: patient Onset: yesterday Position: back Symptom Intensity: 10/10 Timing: other (persistent) Modifying Factors (Worsening): movement, other (palpation) Associated Symptoms: No fevers, No headache, No chest pain, No SOB, No nausea, No vomiting, No melena, No diarrhea, No urinary symptoms, No numbness ( or tingling in the legs or groin) Review of Systems See HPI for pertinent positives & negatives. A total of 10 systems reviewed and were otherwise negative. Past Medical & Surgical Medical Problems: (1) Abrasion of right thumb (2) Acid reflux (3) Anxiety (4) Attention deficit hyperactivity disorder (5) Encounter for removal of sutures (6) Flank pain (7) Foreign body, eye (8) Foreign body, eye (9) Gastroesophageal reflux disease (10) Injury of right foot (11) IRRITABLE BOWEL SYNDROME (12) Kidney stone (13) Kidney stone (14) Laceration of left foot (15) Laceration of left foot (16) Migraine headache (17) Right shoulder injury (18) Urinary retention Family History FH: cancer FH: diabetes mellitus FH: gallbladder disease FH: heart disease FH: hypertension FH: lung disease FH: seizures No significant family history Social History Smoking Status: Never Smoker Alcohol Use: none Drug Use: none Marital Status: Housing Status: lives with family Occupation Status: disabled Current/Historical Medications Scheduled Alfuzosin Hcl (Uroxatral), 10 MG PO QAM Amphetamine-Dextroamphetamine 10MG (Adderall Xr 10MG), 10 MG PO QAM Amphetamine-Dextroamphetamine 30MG (Adderall Xr 30MG), 30 MG PO QAM Bupropion (Wellbutrin-Xl), 300 MG PO DAILY Buspirone HCl (Buspirone HCl), 10 MG PO BID Dicyclomine Hcl (Dicyclomine Hcl), 1 TAB PO BID Folic Acid-Vitamin B6-Vitamin (Folplex 2.2), 1 TAB PO DAILY Lamotrigine (Lamotrigine), 25 MG PO DAILY Tamsulosin Hcl (Flomax), 0.4 MG PO DAILY Scheduled PRN Oxycodone Ir (Roxicodone Ir), 1 TAB PO Q4H PRN for Pain Oxycodone/Acetaminophen 5MG/325MG (Percocet 5MG/325MG), 1-2 TABS PO Q6 PRN for Pain Ropinirole Hydrochloride (Requip), 0.5 MG PO BID PRN for Restless Legs Sumatriptan Succinate (Sumatriptan), 1 SPRAY NA UD PRN for Migraine Trazodone Hcl (Trazodone), 25-50 MG PO HS PRN for Sleep Allergies Coded Allergies: Tramadol (Unverified Allergy, Intermediate, HALLUCINATIONS, 04/20/17) Hydrocodone (Verified Adverse Reaction, Unknown, "SE[employer], ROOM SPINS", 04/19/17) Physical Exam Vital Signs Date Time Temp Pulse Resp B/P (MAP) Pulse Ox O2 Delivery O2 Flow Rate FiO2 04/20/17 14:45 96 18 140/69 97 04/20/17 14:32 04/20/17 14:04 101 18 115/64 98 Room Air 04/20/17 12:26 36.9 113 22 136/92 100 Room Air Physical Exam GENERAL: Patient is alert, sitting up in bed, laying on right side, diaphoretic and in moderate distress EYE EXAM: normal conjunctiva OROPHARYNX: no exudate, no erythema, lips, buccal mucosa, and tongue normal and mucous membranes are moist NECK: supple, no nuchal rigidity, no adenopathy, non-tender LUNGS: Clear to auscultation. Normal chest wall mechanics HEART: no murmurs, S1 normal and S2 normal ABDOMEN: abdomen soft, non-tender, normo-active bowel sounds, no masses, no rebound or guarding. BACK: Incision is clear, dry and intact without discharge or surrounding erythema. Back is symmetrical on inspection. SKIN: no rashes and no bruising UPPER EXTREMITIES: upper extremities are grossly normal. LOWER EXTREMITIES: Flexion, extension of the hips, knees, ankles and EHL are 5/ 5 bilaterally, moderate pain with flexion in hips, gross sensation intact, patellar and Achilles reflexes are 2/4 bilaterally, DP 2/4. No pitting edema. NEURO EXAM: Normal sensorium, cranial nerves II-XII grossly intact, normal speech, no gross weakness of arms. Medical Decision & Procedures ER Provider Diagnostic Interpretation: Radiology results as stated below per my review and the radiologist's interpretation: LUMBAR SPINE 2 OR 3 VIEWS CLINICAL HISTORY: 32 years-old Male presenting with lower back pain recent surg TECHNIQUE: Frontal, lateral, and coned in lateral views of the lumbar spine were obtained. COMPARISON: MR from 04/03/2017. FINDINGS: Normal lumbar lordosis. No scoliosis. Vertebral bodies maintain normal height and alignment. Intervertebral disc spaces preserved. No significant degenerative change is radiographically evident. No osseous neural foraminal narrowing. No radiographic evidence of acute fracture. No postsurgical change is evident. Nonobstructive bowel gas pattern with mild stool burden. IMPRESSION: Normal lumbar spine. The previously noted disc bulge at L4-5 on MR is not radiographically apparent. Electronically signed by: Cristobal Church M.D. 04/20/2017 1:59 PM Laboratory Results 04/20/17 13:10 Red Blood Count 5.26, Mean Corpuscular Volume 92.8, Mean Corpuscular Hemoglobin 30.8, Mean Corpuscular Hemoglobin Concent 33.2, Mean Platelet Volume 10.8, Neutrophils (%) (Auto) 78.3, Lymphocytes (%) (Auto) 7.8, Monocytes (%) (Auto) 13.3, Eosinophils (%) (Auto) 0.3, Basophils (%) (Auto) 0.1, Neutrophils # (Auto ) 7.98, Lymphocytes # (Auto) 0.80, Monocytes # (Auto) 1.36, Eosinophils # (Auto ) 0.03, Basophils # (Auto) 0.01 04/20/17 13:10 Test 04/20/17 13:10 White Blood Count 10.20 K/uL (4.8-10.8) Red Blood Count 5.26 M/uL (4.7-6.1) Hemoglobin 16.2 g/dL (14.0-18.0) Hematocrit 48.8 % (42-52) Mean Corpuscular Volume 92.8 fL (80-100) Mean Corpuscular Hemoglobin 30.8 pg (25-34) Mean Corpuscular Hemoglobin Concent 33.2 g/dl (32-36) Platelet Count 189 K/uL (130-400) Mean Platelet Volume 10.8 fL (7.4-10.4) Neutrophils (%) (Auto) 78.3 % Lymphocytes (%) (Auto) 7.8 % Monocytes (%) (Auto) 13.3 % Eosinophils (%) (Auto) 0.3 % Basophils (%) (Auto) 0.1 % Neutrophils # (Auto) 7.98 K/uL (1.4-6.5) Lymphocytes # (Auto) 0.80 K/uL (1.2-3.4) Monocytes # (Auto) 1.36 K/uL (0.11-0.59) Eosinophils # (Auto) 0.03 K/uL (0-0.5) Basophils # (Auto) 0.01 K/uL (0-0.2) RDW Standard Deviation 42.5 fL (36.4-46.3) RDW Coefficient of Variation 12.5 % (11.5-14.5) Immature Granulocyte % (Auto) 0.2 % Immature Granulocyte # (Auto) 0.02 K/uL (0.00-0.02) Anion Gap 6.0 mmol/L (3-11) Est Creatinine Clear Calc Drug Dose 132.9 ml/min Estimated GFR () 119.0 Estimated GFR (Non- 102.7 BUN/Creatinine Ratio 7.5 (10-20) Calcium Level 9.4 mg/dl (8.5-10.1) Total Bilirubin 0.9 mg/dl (0.2-1) Direct Bilirubin 0.1 mg/dl (0-0.2) Aspartate Amino Transf (AST/SGOT) 34 U/L (15-37) Alanine Aminotransferase (ALT/SGPT) 82 U/L (12-78) Alkaline Phosphatase 106 U/L (45-117) Total Protein 7.4 gm/dl (6.4-8.2) Albumin 4.1 gm/dl (3.4-5.0) Lipase 96 U/L (73-393) Laboratory results per my review. Medications Administered Medications (Trade) Dose Ordered Sig/Kaden Route Start Time Stop Time Status Last Admin Dose Admin Morphine Sulfate (MoRPHine SULFATE INJ) 8 mg NOW STAT IV 04/20/17 12:56 04/20/17 12:58 DC 04/20/17 13:10 8 MG Ondansetron HCl (Zofran Inj) 4 mg NOW STAT IV 04/20/17 12:56 04/20/17 12:58 DC 04/20/17 13:10 4 MG Sodium Chloride 1,000 ml @ 999 mls/hr Q1H1M STAT IV 04/20/17 12:56 04/20/17 13:56 DC 04/20/17 12:56 999 MLS/HR Ketorolac Tromethamine (Toradol Inj) 30 mg NOW STAT IV 04/20/17 14:20 04/20/17 14:21 DC 04/20/17 14:31 30 MG Dexamethasone Sodium Phosphate (Decadron Inj) 10 mg NOW ONCE IV 04/20/17 14:30 04/20/17 14:31 DC 04/20/17 14:31 10 MG ED Course ED COURSE: Vital signs were reviewed and showed the patient is tachycardic, which is likely situational The patients medical record was reviewed The above diagnostic studies were performed and reviewed. ED treatments and interventions as stated above. 1250: The patient was evaluated in room B5. A complete history and physical examination was performed. 1256: NSS 1000 ml @ 999 mls/hr IV, Zofran 4 mg IV, Morphine Sulfate 8 mg IV. 1315: I discussed the patients case with Paula Dodd PA-C, [facility]. She recommends he follow up with Orthopedics if his symptoms persist. 1400: I reevaluated the patient. He is feeling well and resting comfortably. 1420: Upon reevaluation, the patient is feeling much better. I discussed my findings with the patient and he understands and agrees with the treatment plan. 1420: Toradol 30 mg IV, Decadron 10 mg IV. Based on the patients age, coexisting illnesses, exam and lab findings the decision to treat as an outpatient was made. The patient remained stable while under my care. The patient appeared well at the time of discharge. Medical Decision Differential diagnoses includes but is not limited to lumbar radiculopathy, muscle strain, facture, cauda equina, mass, and disc herniation. Patient is a 32-year-old male who apparently had a discectomy yesterday by Dr. Branch from [facility]. CBC on BMP, LFTs, bilirubin lipase is unremarkable. Patient was neurologically intact although in moderate pain. IV morphine was given. Patient had a prescription for narcotics which she did not fill as they were apparently having troubles with this. Attempted to contact his operating surgeon but he was not educational program assistant. We have no one educational program assistant for spine but Dr. Alice CASTELAN did call back. X-rays were unremarkable. As he is neurologically intact no signs of cauda equina. This would be too early for infection but no leukocytosis or fevers. Patient felt slightly better. Discharged follow-up with surgeon. Discussed with Pt concerning signs and symptoms to watch out for. Pt was instructed to follow up with their PCP and discussed with the patient their option to return to the ED at anytime for persistent or worsening symptoms. The appropriate anticipatory guidance and out- patient management, including indications for return to the emergency department , were explained at length to the patient and understood. Medication Reconcilliation Current Medication List: was personally reviewed by me Blood Pressure Screening Patient's blood pressure: Normal blood pressure Blood pressure disposition: Did not require urgent referral Consults Time Called: 1305 Consulting Physician: Paula Dodd PA-C, [facility] Returned Call: [phone] I discussed the patients case with Paula Dodd PA-C, [facility]. She recommends he follow up with Orthopedics if his symptoms persist. Impression Primary Impression: Postoperative back pain Scribe Attestation The scribe's documentation has been prepared under my direction and personally reviewed by me in its entirety. I confirm that the note above accurately reflects all work, treatment, procedures, and medical decision making performed by me. Departure Information Dispostion Home / Self-Care Referrals Luz Maria Zendejas M.D. (PCP) Patient Instructions My [facility], Pain Management Post Surg, Post Op Pain Manage Home Meds Additional Instructions Please follow up with your primary care doctor or if you are a student, [facility] with in the next 24 hours. Any worsening of your symptoms, please return to the ED immediately. This includes any fevers greater than 100.4, worsening pain, weakness or numbness in the arms or legs, unable to void, numbness in your groin, unable to move your bowels, persistent nausea, vomiting, unable to eat or drink, or any other concerning signs or symptoms from your standpoint. You were given medications during this visit that will inhibit your ability to drive, operate machinery and work. Please do NOT drive, operate machinery, drink alcohol or work for the next 12hrs.
== END 2017-04-20 14:48 | disposition home or self-care (01) ==
LOC: EDBD 12:21 → C.EDB 12:22
DX: G89.18 Other acute postprocedural pain (principal); M54.5 Low back pain; K21.9 Gastro-esophageal reflux disease without esophagitis; F41.9 Anxiety disorder, unspecified; F90.9 Attention-deficit hyperactivity disorder, unspecified type; K58.9 Irritable bowel syndrome, unspecified; Z87.442 Personal history of urinary calculi; Z80.9 Family history of malignant neoplasm, unspecified; Z83.3 Family history of diabetes mellitus; Z82.49 Family history of ischemic heart disease and other diseases of the circulatory system; Z83.6 Family history of other diseases of the respiratory system; Z79.899 Other long term (current) drug therapy

== ENCOUNTER → 2017-06-04 | Outpatient (CLI) | payer OTHER ==
[~2017-06-04] MED LIST changes: +ALFU10TA2 PO; -ALFU10TA30 PO
--- NOTE | 2017-06-04 16:19 | DIAGNOSTIC IMAGING REPORT ---
KUB CLINICAL HISTORY: 32 years-old Male presenting with N20.0 [id number]. TECHNIQUE: Single supine view of the abdomen was obtained. COMPARISON: 08/20/2016. FINDINGS: Moderate stool burden throughout the colon, which may be slightly decreased in comparison to prior exam. Paucity of small bowel gas, nonspecific. No gross evidence of bowel obstruction. No gross pneumoperitoneum. Allowing for stool and bowel gas, no calcifications project over the renal shadows to suggest nephrolithiasis. No calcifications along the courses of the ureters. Multiple pelvic phleboliths in a similar distribution as on prior exam. Osseous structures normal. Lung bases clear. IMPRESSION: 1. No radiographic evidence of nephrolithiasis. Electronically signed by: Cristobal Church M.D. 06/04/2017 4:18 PM Dictated Date/Time: 06/04/2017 4:16 PM
== END | disposition home or self-care (01) ==
LOC: C.RAD 15:54
PROVIDERS: ATTEND Urology
DX: N20.0 Calculus of kidney (principal)

== ENCOUNTER 2017-06-27 18:45 | Inpatient (IN) | payer OTHER ==
[~2017-06-27] VITALS: Ht 182.9 cm; Wt 88.6 kg
--- NOTE | 2017-06-27 18:56 | EMERGENCY ROOM VISIT NOTE ---
History Report prepared by Zack: Thom Cortes Under the Supervision of: Dr. Samantha Doran D.O. First contact with patient: 18:47 Stated Complaint: OVERDOSE/ ATIVAN History of Present Illness The patient is a 32 year old male who presents to the Emergency Room with complaints of a sudden intentional overdose that occurred around 2 hours ago. He says that he has had worsening stress levels recently, and tried to kill himself by taking around 2 hand-fulls of Ativan. The patient states that this Ativan was previously prescribed to him years ago, and is left over from the batch. He says that he has not been taking the Ativan for stress or anxiety. The patient notes that he is feeling very tired, but denies any nausea, vomiting , shortness of breath, headaches, leg swelling, or recent illnesses. He states that he has never tried to overdose on medications before. The patient denies drinking any alcohol, smoking any marijuana, or using any other medications today. Source of History: patient Onset: Around 2 hours ago Position: other (global - overdose) Symptom Intensity: on Ativan - 2 hand fulls Quality: other (intentional) Timing: other (sudden) Associated Symptoms: + fatigue, No headache, No SOB, No nausea, No vomiting Note: Associated symptoms: Denies leg swelling or recent illnesses. Review of Systems See HPI for pertinent positives & negatives. A total of 10 systems reviewed and were otherwise negative. Past Medical & Surgical Medical Problems: (1) Abrasion of right thumb (2) Acid reflux (3) ADHD (4) Anxiety (5) Anxiety disorder, unspecified (6) Attention deficit hyperactivity disorder (7) Encounter for removal of sutures (8) Flank pain (9) Foreign body, eye (10) Foreign body, eye (11) Gastroesophageal reflux disease (12) Injury of right foot (13) IRRITABLE BOWEL SYNDROME (14) Kidney stone (15) Kidney stone (16) Laceration of left foot (17) Laceration of left foot (18) Migraine headache (19) Right shoulder injury (20) Urinary retention Family History FH: cancer FH: diabetes mellitus FH: gallbladder disease FH: heart disease FH: hypertension FH: lung disease FH: seizures No significant family history Social History Smoking Status: Never Smoker Alcohol Use: none Drug Use: none Marital Status: Housing Status: lives with family Occupation Status: disabled Current/Historical Medications Scheduled Alfuzosin Hcl (Uroxatral), 10 MG PO QAM Amphetamine-Dextroamphetamine 10MG (Adderall Xr 10MG), 10 MG PO QAM Amphetamine-Dextroamphetamine 30MG (Adderall Xr 30MG), 30 MG PO QAM Bupropion (Wellbutrin-Xl), 300 MG PO DAILY Buspirone HCl (Buspirone HCl), 10 MG PO BID Dicyclomine Hcl (Dicyclomine Hcl), 1 TAB PO BID Folic Acid-Vitamin B6-Vitamin (Folplex 2.2), 1 TAB PO DAILY Lamotrigine (Lamotrigine), 25 MG PO DAILY Tamsulosin Hcl (Flomax), 0.4 MG PO DAILY Scheduled PRN Lorazepam (Ativan), 0.5 MG PO Q6H PRN for Anxiety Ropinirole Hydrochloride (Requip), 0.5 MG PO BID PRN for Restless Legs Trazodone Hcl (Trazodone), 25-50 MG PO HS PRN for Sleep Allergies Coded Allergies: Tramadol (Unverified Allergy, Intermediate, HALLUCINATIONS, 06/27/17) Hydrocodone (Verified Adverse Reaction, Unknown, "SEES LITTLE GREEN MARTAINS, ROOM SPINS", 06/27/17) Physical Exam Vital Signs Date Time Temp Pulse Resp B/P (MAP) Pulse Ox O2 Delivery O2 Flow Rate FiO2 06/27/17 22:36 101 06/27/17 22:09 101 19 144/87 96 Room Air 06/27/17 21:30 103 20 137/102 97 Room Air 06/27/17 21:00 107 18 139/98 97 Room Air 06/27/17 20:00 101 18 133/98 99 Room Air 06/27/17 19:30 111 18 128/87 97 Room Air 06/27/17 18:59 37.0 113 20 153/97 98 Room Air 06/27/17 18:54 111 Physical Exam GENERAL: alert, well appearing, edentulous, well nourished, no distress, non- toxic EYE EXAM: normal conjunctiva, PERRL and EOM's grossly intact OROPHARYNX: no exudate, no erythema, lips, buccal mucosa, and tongue normal and mucous membranes are moist NECK: supple, no nuchal rigidity, no adenopathy, non-tender LUNGS: Clear to auscultation. Normal chest wall mechanics HEART: no murmurs, S1 normal and S2 normal ABDOMEN: abdomen soft, non-tender, normo-active bowel sounds, no masses, no rebound or guarding. BACK: Back is symmetrical on inspection and there is no deformity, no midline tenderness, no CVA tenderness. SKIN: no rashes and no bruising UPPER EXTREMITIES: upper extremities are grossly normal. LOWER EXTREMITIES: No pitting edema. NEURO EXAM: Normal sensorium, cranial nerves II-XII grossly intact, normal speech, no gross weakness of arms, no gross weakness of legs. Medical Decision & Procedures Laboratory Results 06/27/17 18:14 Red Blood Count 5.17, Mean Corpuscular Volume 91.1, Mean Corpuscular Hemoglobin 32.1, Mean Corpuscular Hemoglobin Concent 35.2, Mean Platelet Volume 10.7, Neutrophils (%) (Auto) 68.9, Lymphocytes (%) (Auto) 23.4, Monocytes (%) (Auto) 6.2, Eosinophils (%) (Auto) 1.0, Basophils (%) (Auto) 0.3, Neutrophils # (Auto) 4.20, Lymphocytes # (Auto) 1.43, Monocytes # (Auto) 0.38, Eosinophils # (Auto) 0.06, Basophils # (Auto) 0.02 06/27/17 18:14 Test 06/27/17 18:14 06/27/17 19:22 06/27/17 20:38 06/27/17 20:40 White Blood Count 6.10 K/uL (4.8-10.8) Red Blood Count 5.17 M/uL (4.7-6.1) Hemoglobin 16.6 g/dL (14.0-18.0) Hematocrit 47.1 % (42-52) Mean Corpuscular Volume 91.1 fL (80-100) Mean Corpuscular Hemoglobin 32.1 pg (25-34) Mean Corpuscular Hemoglobin Concent 35.2 g/dl (32-36) Platelet Count 219 K/uL (130-400) Mean Platelet Volume 10.7 fL (7.4-10.4) Neutrophils (%) (Auto) 68.9 % Lymphocytes (%) (Auto) 23.4 % Monocytes (%) (Auto) 6.2 % Eosinophils (%) (Auto) 1.0 % Basophils (%) (Auto) 0.3 % Neutrophils # (Auto) 4.20 K/uL (1.4-6.5) Lymphocytes # (Auto) 1.43 K/uL (1.2-3.4) Monocytes # (Auto) 0.38 K/uL (0.11-0.59) Eosinophils # (Auto) 0.06 K/uL (0-0.5) Basophils # (Auto) 0.02 K/uL (0-0.2) RDW Standard Deviation 42.3 fL (36.4-46.3) RDW Coefficient of Variation 12.8 % (11.5-14.5) Immature Granulocyte % (Auto) 0.2 % Immature Granulocyte # (Auto) 0.01 K/uL (0.00-0.02) Anion Gap 7.0 mmol/L (3-11) Est Creatinine Clear Calc Drug Dose 97.7 ml/min Estimated GFR () 93.7 Estimated GFR (Non- 80.9 BUN/Creatinine Ratio 10.3 (10-20) Calcium Level 9.2 mg/dl (8.5-10.1) Total Bilirubin 0.8 mg/dl (0.2-1) Aspartate Amino Transf (AST/SGOT) 34 U/L (15-37) Alanine Aminotransferase (ALT/SGPT) 86 U/L (12-78) Alkaline Phosphatase 101 U/L (45-117) Total Protein 7.5 gm/dl (6.4-8.2) Albumin 4.5 gm/dl (3.4-5.0) Globulin 3.0 gm/dl (2.5-4.0) Albumin/Globulin Ratio 1.5 (0.9-2) Lipase 155 U/L (73-393) Thyroid Stimulating Hormone (TSH) 1.600 uIu/ml (0.300-4.500) Salicylates Level < 1.7 mg/dl (2.8-20) Acetaminophen Level < 2 ug/ml (10-30) Ethyl Alcohol mg/dL < 3.0 mg/dl (0-3) Urine Opiates Screen NEG (NEG) Urine Methadone, Qualitative NEG (NEG) Urine Barbiturates NEG (NEG) Urine Phencyclidine (PCP) Level NEG (NEG) Ur Amphetamine/Methamphetamine POS (NEG) MDMA (Ecstasy) Screen POS (NEG) Urine Benzodiazepines Screen NEG (NEG) Urine Cocaine Metabolite NEG (NEG) Urine Marijuana (THC) NEG (NEG) Urine Color YELLOW Urine Appearance CLEAR (CLEAR) Urine pH 7.5 (4.5-7.5) Urine Specific Sabin 1.017 (1.000-1.030) Urine Protein NEG (NEG) Urine Glucose (UA) NEG (NEG) Urine Ketones NEG (NEG) Urine Occult Blood NEG (NEG) Urine Nitrite NEG (NEG) Urine Bilirubin NEG (NEG) Urine Urobilinogen NEG (NEG) Urine Leukocyte Esterase NEG (NEG) Laboratory results per my review. Medications Administered Medications (Trade) Dose Ordered Sig/Kaden Route Start Time Stop Time Status Last Admin Dose Admin Sodium Chloride 1,000 ml @ 999 mls/hr Q1H1M STAT IV 06/27/17 20:03 06/27/17 21:03 DC 06/27/17 19:30 999 MLS/HR ECG Indication: toxicologic Rate (beats per minute): 102 Rhythm: sinus tachycardia Findings: no acute ischemic change, no ectopy, other (normal axis, normal intervals) ED Course 184: The patient was evaluated in room A3. A complete history and physical exam was performed. 2002: Ordered NSS 1000 ml @ 999 mls/hr IV. PSP also arrived at the ER to question the pt briefly. We were made aware he was being questioned by police in another jurisdiction earlier today which may have contributed to his subsequent suicide attempt. 2124: I reevaluated and updated the patient. 0104: I was notified that the patient was to be brought upstairs to south for further treatment and evaluation. 0245: Voluntary admission form signed. Medical Decision Differential diagnosis: Etiologies such as mood disorder, infection, hypoglycemia, electrolyte abnormalities, cardiac sources, intracerebral event, toxicologic, neurologic, as well as others were entertained. Medication Reconcilliation Current Medication List: was personally reviewed by me Blood Pressure Screening Patient's blood pressure: Elevated blood pressure Blood pressure disposition: Elevated BP felt to be situational Impression Primary Impression: Depression Additional Impressions: Suicide attempt Overdose Scribe Attestation The scribe's documentation has been prepared under my direction and personally reviewed by me in its entirety. I confirm that the note above accurately reflects all work, treatment, procedures, and medical decision making performed by me. Departure Information Dispostion [facility] (upstairs to 3 south) Referrals Luz Maria Zendejas M.D. (PCP) Problem Qualifiers Primary Impression: Depression Depression Type: major depressive disorder Major depression recurrence: recurrent Active/Remission status: currently active Major depression episode severity: moderate Qualified Codes: F33.1 - Major depressive disorder, recurrent, moderate Additional Impressions: Overdose Encounter type: initial encounter Injury intent: intentional self-harm Qualified Codes: T50.902A - Poisoning by unspecified drugs, medicaments and biological substances, intentional self-harm, initial encounter
[2017-06-27 19:13] LABS: BASO % 0.3 %; BASO ABS # 0.02 K/uL (0-0.2); COMPLETE YES; HEMATOCRIT 47.1 % (42-52); IG% 0.2 %; LYMPH % 23.4 %; LYMPH ABS # 1.43 K/uL (1.2-3.4); MEAN CELL VOLUME 91.1 fL (80-100); MEAN CORPUSCULAR HEMOGLOBIN 32.1 pg (25-34); MEAN CORPUSCULAR HGB CONC 35.2 g/dl (32-36); MEAN PLATELET VOLUME 10.7 fL (7.4-10.4); MONO % 6.2 %; NEUT % 68.9 %; PLATELET COUNT 219 K/uL (130-400); RED BLOOD COUNT 5.17 M/uL (4.7-6.1)
[2017-06-27] MEDS ORDERED: LORA-741 PO (19:38)
[2017-06-27 19:46] LABS: BUN/CREATININE RATIO 10.3 (10-20); CALCIUM 9.2 mg/dl (8.5-10.1); CREATININE 1.17 mg/dl (0.60-1.40); POTASSIUM 3.7 mmol/L (3.5-5.1)
[2017-06-27 19:49] LABS: ALB/GLOB RATIO 1.5 (0.9-2)
[2017-06-27] MEDS ORDERED: SODIUM CHLORIDE 0.9% 1000ML 1,000 ML IV STA (20:03)
[2017-06-27 20:10] LABS: ACETAMINOPHEN < 2 ug/ml (10-30)
[2017-06-27 21:14] LABS: BENZODIAZEPINE, URINE NEG (NEG); COCAINE,URINE NEG (NEG); PHENCYCLIDINE, URINE NEG (NEG)
[2017-06-28 02:22] LABS: URINE APPEARANCE CLEAR (CLEAR); URINE BILIRUBIN NEG (NEG); URINE COLOR YELLOW; URINE NITRITE NEG (NEG); URINE PH 7.5 (4.5-7.5); URINE SPECIFIC GRAVITY 1.017 (1.000-1.030); UROBILINOGEN NEG (NEG); ZZUR CULT IF INDIC CLEAN CATCH NO
[2017-06-28 02:39] LABS: MANUAL MICROSCOPIC REQUIRED? NO; REVIEW REQ? NO
[2017-06-28] MEDS ORDERED: NURSING VERBAL MED ORDER ONE (02:45)
[2017-06-28 02:48] LABS: THYROID STIMULATING HORMONE 1.6 uIu/ml (0.300-4.500)
[2017-06-28 03:15] VITALS: O2SAT 96
[2017-06-28 04:08] VITALS: BP 122/80; PULSE 85; TEMP 37; Ht 182.9 cm; Wt 88.6 kg
[2017-06-28] MEDS ORDERED: hydrOXYzine HCL 25 MG TAB PO PRN ×2 (04:30)
[2017-06-28] MEDS ORDERED: MAGNESIUM HYDROXIDE SUSP 30 ML UDC PO PRN (04:30)
[2017-06-28] MEDS ORDERED: BISMUTH SUBSALICYLATE PER ML OMNICELL CHARGE PO PRN (04:30)
[2017-06-28] MEDS ORDERED: ALUMINUM/MAGNESIUM SUSP 30 ML UDC PO PRN (04:30)
[2017-06-28] MEDS ORDERED: SODIUM CHLORIDE 0.65% NA SOLN 45 ML (OCEAN) PRN (04:30)
[2017-06-28 07:06] VITALS: BP_SYST 108; BP_SYST 132; BP_DIAS 69; BP_DIAS 86; PULSE 79; TEMP 36.7
[2017-06-28] MEDS ORDERED: ROPINIROLE HCL 0.25 MG TAB PO PRN (11:45)
[2017-06-28] MEDS: TAMSULOSIN HCL 0.4 MG CAP PO SCH (12:34)
[2017-06-28] MEDS: BuPROPion XL 300 MG TABCR PO SCH (12:35)
[2017-06-28] MEDS: ALFUZosin TAB 10 MG TAB PO SCH (12:35)
[2017-06-28] MEDS ORDERED: AMPHETAMINE ASP/SULF/DEXTRAMPH 10 MG TAB PO ONE (13:30)
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
[2017-06-28] MEDS: DICYCLOMINE HCL 10 MG CAP PO SCH (21:10)
[2017-06-29 07:02] VITALS: BP_SYST 103; BP_SYST 117; BP_DIAS 67; BP_DIAS 85; PULSE 77; PULSE 97; TEMP 36.7
[2017-06-29] MEDS: DICYCLOMINE HCL 10 MG CAP PO SCH ×2 (08:40→21:09)
[2017-06-29] MEDS: ALFUZosin TAB 10 MG TAB PO SCH (08:41)
[2017-06-29] MEDS: BuPROPion XL 300 MG TABCR PO SCH (08:41)
[2017-06-29] MEDS: TAMSULOSIN HCL 0.4 MG CAP PO SCH (08:41)
[2017-06-29] MEDS: ACETAMINOPHEN 325 MG TAB PO PRN (13:22)
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
[2017-06-29] MEDS: TRAZODONE HCL 50 MG TAB PO PRN (21:11)
[2017-06-30 07:13] VITALS: BP_SYST 116; BP_SYST 117; BP_DIAS 71; BP_DIAS 73; PULSE 67; PULSE 99; TEMP 36.8
[2017-06-30] MEDS: DICYCLOMINE HCL 10 MG CAP PO SCH ×2 (08:58→21:21)
[2017-06-30] MEDS: BuPROPion XL 300 MG TABCR PO SCH (08:59)
[2017-06-30] MEDS: TAMSULOSIN HCL 0.4 MG CAP PO SCH (08:59)
[2017-06-30] MEDS: ALFUZosin TAB 10 MG TAB PO SCH (08:59)
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
[2017-06-30] MEDS ORDERED: ONDANSETRON 8 MG TAB PO PRN (12:15)
[2017-06-30] MEDS: ACETAMINOPHEN 325 MG TAB PO PRN (19:20)
[2017-06-30] MEDS ORDERED: BusPIRone 15 MG TAB PO ONE (22:00)
[2017-06-30] MEDS: TRAZODONE HCL 50 MG TAB PO PRN (22:09)
[2017-07-01 07:04] VITALS: BP_SYST 117; BP_SYST 124; BP_DIAS 80; BP_DIAS 86; PULSE 83; TEMP 36.7
[2017-07-01] MEDS: DICYCLOMINE HCL 10 MG CAP PO SCH (07:57)
[2017-07-01] MEDS: TAMSULOSIN HCL 0.4 MG CAP PO SCH (07:59)
[2017-07-01] MEDS: ALFUZosin TAB 10 MG TAB PO SCH (07:59)
[2017-07-01] MEDS: BuPROPion XL 300 MG TABCR PO SCH (08:00)
[2017-07-01] MEDS ORDERED: BSP/10 PO (11:16)
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
== END 2017-07-01 11:45 | disposition home or self-care (01) | DRG 880 ==
LOC: EDBD 18:45 → C.EDA 18:46 → C.MHU 06-28 02:34
PROVIDERS: ADMIT Psychiatry & Neurology Child & Adolescent Psychiatry; ATTEND Psychiatry & Neurology Child & Adolescent Psychiatry
DX: F41.9 Anxiety disorder, unspecified (principal); T42.4X2A Poisoning by benzodiazepines, intentional self-harm, initial encounter; F90.9 Attention-deficit hyperactivity disorder, unspecified type; G43.909 Migraine, unspecified, not intractable, without status migrainosus; K58.9 Irritable bowel syndrome, unspecified; Z79.899 Other long term (current) drug therapy; Z81.8 Family history of other mental and behavioral disorders; Z83.3 Family history of diabetes mellitus; Z82.49 Family history of ischemic heart disease and other diseases of the circulatory system

== ENCOUNTER 2017-07-05 15:50 | Inpatient (IN) | payer OTHER ==
[~2017-07-05] VITALS: Ht 177.8 cm; Wt 88.7 kg
[~2017-07-05 15:50] MED LIST changes: -AMPH10CA3 PO; -AMPH30CA3 PO; -FOLITAB19 PO; -LMC25 PO; -OXYC-57 PO; -OXYC1TAB3 PO; -ROPI0.5T PO; -TRAZ50TA35 PO; -[UNRECOGNIZED DRUG - OTHER]
[2017-07-05] MEDS ORDERED: ONDANSETRON INJ 2 MG/ML 2 ML VIAL IV STA (16:10)
[2017-07-05] MEDS ORDERED: SODIUM CHLORIDE 0.9% 500ML 500 ML IV STA (16:10)
[2017-07-05] MEDS ORDERED: FOLITAB19 PO (16:15)
--- NOTE | 2017-07-05 16:31 | EMERGENCY ROOM VISIT NOTE ---
History Report prepared by Zack: Ricky Hall Under the Supervision of: Dr. Trey Jasso D.O. First contact with patient: 15:59 Chief Complaint: NAUSEA Stated Complaint: NAUSEA, RT ARM NUMBNESS History of Present Illness The patient is a 32 year old male who presents to the Emergency Room with complaints of intermittent right arm numbness that started last night at 0300. He rates his discomfort as a 9/10 in severity. The patient states that it feels as someone took a hammer to his arm. The patient states that he was laying in bed last night after taking a shower and noticed that his right arm went completely numb for ten minutes. He reports that after ten minutes he was able to move it. The patient states that following this episode, the numbness returned about 8 times. He states that the following times his arm would become cramped in a certain position and he was not able to hold anything. The patient states that these episodes would also last about ten minutes as well. He reports that he was carrying a washer today and noticed that his hand cramped up again, which caused him to drop the washer. He reports that the spasm occurred again before coming to the ED and he was not able to hold his coffee. The patient states that he is currently experiencing right arm pain but denies any current numbness or weakness. He states that he has also been experiencing nausea starting four days ago. The patient states that he has been vomiting but denies any vomiting within the last two days. He states that he has history of IBS but denies that his symptoms are similar to his IBS. He reports that he was recently in the hospital last week due to an overdose from taking too many Ativan pills. The patient states that he does not have any current suicidal ideations. 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 The patient denies abdominal pain, diarrhea, neck pain, previous abdominal surgeries, suicidal ideation, injury, leg or face numbness, and a history of blood clots. Source of History: patient Onset: last night 0300 Position: arm (right) Symptom Intensity: 9/10 Quality: numbness Timing: intermittent Associated Symptoms: + nausea, + vomiting (resolved), No neck pain, No abdominal pain, No diarrhea, No weakness, No numbness Review of Systems See HPI for pertinent positives & negatives. A total of 10 systems reviewed and were otherwise negative. Past Medical & Surgical Medical Problems: (1) Abrasion of right thumb (2) Acid reflux (3) ADHD (4) Anxiety (5) Anxiety disorder, unspecified (6) Attention deficit hyperactivity disorder (7) Encounter for removal of sutures (8) Flank pain (9) Foreign body, eye (10) Foreign body, eye (11) Gastroesophageal reflux disease (12) Injury of right foot (13) IRRITABLE BOWEL SYNDROME (14) Kidney stone (15) Kidney stone (16) Laceration of left foot (17) Laceration of left foot (18) Migraine headache (19) Right arm numbness (20) Right shoulder injury (21) Urinary retention Family History FH: cancer FH: diabetes mellitus FH: gallbladder disease FH: heart disease FH: hypertension FH: lung disease FH: seizures No significant family history Social History Smoking Status: Never Smoker Alcohol Use: none Drug Use: none Marital Status: Housing Status: lives with family Occupation Status: disabled Current/Historical Medications Scheduled Alfuzosin HCl (Alfuzosin HCl ER), 10 MG PO DAILY Amphetamine-Dextroamphetamine 10MG (Adderall Xr 10MG), 10 MG PO QAM Amphetamine-Dextroamphetamine 30MG (Adderall Xr 30MG), 30 MG PO QAM Bupropion HCl (Bupropion HCl Xl), 300 MG PO DAILY Buspirone Hcl (Buspirone Hcl), 15 MG PO BID Folic Acid-Vitamin B6-Vitamin (Folplex 2.2), 1 TAB PO DAILY Lamotrigine (Lamotrigine), 25 MG PO BID Tamsulosin Hcl (Flomax), 0.4 MG PO DAILY Scheduled PRN Dicyclomine Hcl (Dicyclomine Hcl), 10 MG PO BID PRN for Abdominal Pain Ropinirole Hydrochloride (Requip), 0.5 MG PO BID PRN for Restless Legs Trazodone Hcl (Trazodone), 25-50 MG PO HS PRN for Sleep Allergies Coded Allergies: Tramadol (Unverified Allergy, Intermediate, HALLUCINATIONS, 06/27/17) Hydrocodone (Verified Adverse Reaction, Unknown, "SEES LITTLE GREEN MARTAINS, ROOM SPINS", 06/27/17) Physical Exam Vital Signs Date Time Temp Pulse Resp B/P (MAP) Pulse Ox O2 Delivery O2 Flow Rate FiO2 07/05/17 18:07 86 16 132/83 100 Room Air 07/05/17 15:57 37.2 94 16 120/79 98 Room Air Physical Exam GENERAL: Sitting up in bed, alert, well appearing, well nourished, no distress, non-toxic EYE EXAM: normal conjunctiva. PERRL and EOM's intact. OROPHARYNX: no exudate, no erythema, lips, buccal mucosa, and tongue normal and mucous membranes are moist NECK: supple, no nuchal rigidity, no adenopathy, non-tender LUNGS: Clear to auscultation. Normal chest wall mechanics HEART: no murmurs, S1 normal and S2 normal ABDOMEN: abdomen soft, non-tender, normo-active bowel sounds, no masses, no rebound or guarding. BACK: Back is symmetrical on inspection and there is no deformity, no midline tenderness, no CVA tenderness. SKIN: no rashes and no bruising UPPER EXTREMITIES: upper extremities are grossly normal. Pulses intact bilaterally. LOWER EXTREMITIES: No pitting edema. NEURO EXAM: Normal sensorium, cranial nerves II-XII intact, normal speech, no weakness of arms, no weakness of legs. No drift. Finger to nose intact. Gross sensation intact. Rapid altering movement, upper extremities in tact. Ambulates without difficulty. Medical Decision & Procedures ER Provider Diagnostic Interpretation: Radiology results as stated below per my review and the radiologist's interpretation: HEAD CT NONCONTRAST CT DOSE: 729.78 mGycm HISTORY: r arm cramping/weak TECHNIQUE: Multiaxial CT images of the head were performed without the use of intravenous contrast. Automated exposure control was utilized for this study. A dose lowering technique was utilized adhering to the principles of ALARA. Comparison: Head CT 07/28/2016. Findings: The paranasal sinuses and mastoid air cells are clear. The calvarium and skull base are intact. The ventricles and sulci are within normal limits. There is no mass, hematoma, midline shift, or acute infarct. Impression: No acute intracranial abnormality. Electronically signed by: Elliot Gonzalez M.D. 07/05/2017 4:43 PM Dictated Date/Time: 07/05/2017 4:39 PM CHEST ONE VIEW PORTABLE CLINICAL HISTORY: 32 years-old Male presenting with r arm cramping . TECHNIQUE: Portable upright AP view of the chest was obtained. COMPARISON: None. FINDINGS: Cardiomediastinal silhouette normal. Lungs and pleural spaces clear. Osseous structures normal. Upper abdomen normal. IMPRESSION: 1. No acute cardiopulmonary disease. Electronically signed by: Cristobal Church M.D. 07/05/2017 4:44 PM Dictated Date/Time: 07/05/2017 4:43 PM R FOREARM 2 VIEWS ROUTINE CLINICAL HISTORY: 32 years-old Male presenting with r mid arm pain. TECHNIQUE: Frontal and lateral views the right forearm are obtained. COMPARISON: None. FINDINGS: Elbow joint, radial ulnar articulations, and radiocarpal articulations are congruent. No acute fracture or malalignment. No radiographic evidence of a soft tissue abnormality. IMPRESSION: No osseous abnormality of the right forearm. Electronically signed by: Cristobal Church M.D. 07/05/2017 5:00 PM Dictated Date/Time: 07/05/2017 4:59 PM Laboratory Results 07/05/17 16:47 Red Blood Count 5.13, Mean Corpuscular Volume 91.2, Mean Corpuscular Hemoglobin 32.6, Mean Corpuscular Hemoglobin Concent 35.7, Mean Platelet Volume 11.4, Neutrophils (%) (Auto) 54.3, Lymphocytes (%) (Auto) 35.5, Monocytes (%) (Auto) 7.7, Eosinophils (%) (Auto) 2.1, Basophils (%) (Auto) 0.2, Neutrophils # (Auto) 2.54, Lymphocytes # (Auto) 1.66, Monocytes # (Auto) 0.36, Eosinophils # (Auto) 0.10, Basophils # (Auto) 0.01 07/05/17 16:47 Test 07/05/17 16:47 07/05/17 17:30 White Blood Count 4.68 K/uL (4.8-10.8) Red Blood Count 5.13 M/uL (4.7-6.1) Hemoglobin 16.7 g/dL (14.0-18.0) Hematocrit 46.8 % (42-52) Mean Corpuscular Volume 91.2 fL (80-100) Mean Corpuscular Hemoglobin 32.6 pg (25-34) Mean Corpuscular Hemoglobin Concent 35.7 g/dl (32-36) Platelet Count 201 K/uL (130-400) Mean Platelet Volume 11.4 fL (7.4-10.4) Neutrophils (%) (Auto) 54.3 % Lymphocytes (%) (Auto) 35.5 % Monocytes (%) (Auto) 7.7 % Eosinophils (%) (Auto) 2.1 % Basophils (%) (Auto) 0.2 % Neutrophils # (Auto) 2.54 K/uL (1.4-6.5) Lymphocytes # (Auto) 1.66 K/uL (1.2-3.4) Monocytes # (Auto) 0.36 K/uL (0.11-0.59) Eosinophils # (Auto) 0.10 K/uL (0-0.5) Basophils # (Auto) 0.01 K/uL (0-0.2) RDW Standard Deviation 42.5 fL (36.4-46.3) RDW Coefficient of Variation 12.8 % (11.5-14.5) Immature Granulocyte % (Auto) 0.2 % Immature Granulocyte # (Auto) 0.01 K/uL (0.00-0.02) Anion Gap 7.0 mmol/L (3-11) Est Creatinine Clear Calc Drug Dose 100.6 ml/min Estimated GFR () 94.7 Estimated GFR (Non- 81.7 BUN/Creatinine Ratio 11.7 (10-20) Calcium Level 9.2 mg/dl (8.5-10.1) Total Bilirubin 0.4 mg/dl (0.2-1) Direct Bilirubin < 0.1 mg/dl (0-0.2) Aspartate Amino Transf (AST/SGOT) 37 U/L (15-37) Alanine Aminotransferase (ALT/SGPT) 75 U/L (12-78) Alkaline Phosphatase 103 U/L (45-117) Total Protein 7.3 gm/dl (6.4-8.2) Albumin 4.5 gm/dl (3.4-5.0) Lipase 139 U/L (73-393) Urine Color DK YELLOW Urine Appearance CLEAR (CLEAR) Urine pH 5.0 (4.5-7.5) Urine Specific [place] 1.034 (1.000-1.030) Urine Protein NEG (NEG) Urine Glucose (UA) NEG (NEG) Urine Ketones TRACE (NEG) Urine Occult Blood NEG (NEG) Urine Nitrite NEG (NEG) Urine Bilirubin NEG (NEG) Urine Urobilinogen NEG (NEG) Urine Leukocyte Esterase TRACE (NEG) Urine WBC (Auto) 1-5 /hpf (0-5) Urine RBC (Auto) 0-4 /hpf (0-4) Urine Hyaline Casts (Auto) 1-5 /lpf (0-5) Urine Epithelial Cells (Auto) 5-10 /lpf (0-5) Urine Bacteria (Auto) NEG (NEG) Urine Opiates Screen NEG (NEG) Urine Methadone, Qualitative NEG (NEG) Urine Barbiturates NEG (NEG) Urine Phencyclidine (PCP) Level NEG (NEG) Ur Amphetamine/Methamphetamine POS (NEG) MDMA (Ecstasy) Screen POS (NEG) Urine Benzodiazepines Screen NEG (NEG) Urine Cocaine Metabolite NEG (NEG) Urine Marijuana (THC) NEG (NEG) Laboratory results per my review. Medications Administered Medications (Trade) Dose Ordered Sig/Kaden Route Start Time Stop Time Status Last Admin Dose Admin Sodium Chloride 500 ml @ 999 mls/hr Q31M STAT IV 07/05/17 16:10 07/05/17 16:40 DC 07/05/17 16:57 999 MLS/HR Ondansetron HCl (Zofran Inj) 4 mg NOW STAT IV 07/05/17 16:10 07/05/17 16:12 DC 07/05/17 16:57 4 MG Ketorolac Tromethamine (Toradol Inj) 30 mg NOW STAT IV 07/05/17 16:53 07/05/17 16:54 DC 07/05/17 16:58 30 MG Aspirin (Aspirin Chew) 324 mg NOW STAT PO 07/05/17 18:18 07/05/17 18:19 DC 07/05/17 18:00 324 MG ECG Indication: weakness Rate (beats per minute): 90 Rhythm: sinus rhythm Findings: no ectopy, other (Normal axis) ED Course ED COURSE: Vital signs were reviewed and showed normal The patients medical record was reviewed The above diagnostic studies were performed and reviewed. ED treatments and interventions as stated above. 1601: The patient was evaluated in room B08. A complete history and physical examination was performed. 1610: Ordered Zofran Injection 4 mg IV, Sodium Chloride 500 ml @ 999 mls/hr IV. 1653: Ordered Toradol Injection 30 mg IV. 1654: I discussed the patient's case with Dr. Schilling, [facility] Neurology. She suggests that the patient should come in for a work up. 1710: I reevaluated the patient and he is doing fine. He reports that his nausea has resolved. 171: I discussed the patients case with Dr. Brown, [facility]. She understands the patients condition and agrees to accept the patient. The patient will be further evaluated. 1817: Ordered Aspiring 324 mg PO. Medical Decision Differential Diagnosis includes but is not limited to ischemic Stroke, hemorrhagic stroke, bells palsy, mass, neoplasm, migraine headache, seizure, subarachnoid hemorrhage, TIA, and transient global amnesia. Patient is a 32-year-old male who presents to ER for intermittent numbness and cramping of his right upper extremity over the course of the past day. He has no current focal deficit now. He is completely neurologically intact. No history of stroke, blood clots or IV drug use. Patient has no other significant medical problems. Does have a recent admission for depression and suicidal thoughts. He does admit to being nauseous intermittently since Saturday. He has no belly pain. He did have previous vomiting. No chest pain, shortness of breath or abdominal pain. Only pain he has his mid forearm. There is no swelling in the forearms. X-ray of forearm was negative. CT head was negative. He has no neck pain to suggest radiculopathy. No current headaches. He did have a mild one this morning. No signs meningitis or encephalitis. CBC all BMP, LFTs, bilirubin lipase is normal. Discussed with Dr. Peñaloza from neurology and with that completely flaccid right arm for 10 minutes and recurrence she thinks it would be safer to admit him for a stroke workup. I favor this is more musculoskeletal but I do agree. Discussed with internal medicine patient will be evaluated for further workup. Patient was given aspirin, fluids and Toradol. Medication Reconcilliation Current Medication List: was personally reviewed by me Blood Pressure Screening Patient's blood pressure: Normal blood pressure Consults Time Called: 1653 Consulting Physician: Dr. Schilling, [facility] Neurology Returned Call: [phone] I discussed the patient's case with Dr. Schilling, [facility] Neurology. She suggests that the patient should come in for a work up. Additional Consults: Time Called: 1713 Consulted Physician: Dr. Brown [facility] Returned Call: [phone] Additional Comments: I discussed the patients case with Dr. Brown, [facility] Hospitalist. She understands the patients condition and agrees to accept the patient. The patient will be further evaluated. Impression Primary Impression: Right arm weakness Additional Impression: Contracture of joint Scribe Attestation The scribe's documentation has been prepared under my direction and personally reviewed by me in its entirety. I confirm that the note above accurately reflects all work, treatment, procedures, and medical decision making performed by me. Departure Information Dispostion Being Evaluated By Hospitalist Referrals No Doctor, Assigned (PCP) Patient Instructions My [facility] Problem Qualifiers
[2017-07-05] MEDS ORDERED: URX/10 PO (16:37)
[2017-07-05] MEDS ORDERED: WLLXL300 PO (16:39)
[2017-07-05] MEDS ORDERED: BUSP-8 PO (16:41)
--- NOTE | 2017-07-05 16:44 | DIAGNOSTIC IMAGING REPORT ---
HEAD CT NONCONTRAST CT DOSE: 729.78 mGycm HISTORY: r arm cramping/weak TECHNIQUE: Multiaxial CT images of the head were performed without the use of intravenous contrast. Automated exposure control was utilized for this study. A dose lowering technique was utilized adhering to the principles of ALARA. Comparison: Head CT 07/28/2016. Findings: The paranasal sinuses and mastoid air cells are clear. The calvarium and skull base are intact. The ventricles and sulci are within normal limits. There is no mass, hematoma, midline shift, or acute infarct. Impression: No acute intracranial abnormality. Electronically signed by: Elliot Gonzalez M.D. 07/05/2017 4:43 PM Dictated Date/Time: 07/05/2017 4:39 PM
--- NOTE | 2017-07-05 16:45 | DIAGNOSTIC IMAGING REPORT ---
CHEST ONE VIEW PORTABLE CLINICAL HISTORY: 32 years-old Male presenting with r arm cramping . TECHNIQUE: Portable upright AP view of the chest was obtained. COMPARISON: None. FINDINGS: Cardiomediastinal silhouette normal. Lungs and pleural spaces clear. Osseous structures normal. Upper abdomen normal. IMPRESSION: 1. No acute cardiopulmonary disease. Electronically signed by: Cristobal Church M.D. 07/05/2017 4:44 PM Dictated Date/Time: 07/05/2017 4:43 PM
[2017-07-05] MEDS ORDERED: KETOROLAC TROMETHAMINE 30 MG/ML VIAL IV STA (16:53)
--- NOTE | 2017-07-05 17:01 | DIAGNOSTIC IMAGING REPORT ---
R FOREARM 2 VIEWS ROUTINE CLINICAL HISTORY: 32 years-old Male presenting with r mid arm pain. TECHNIQUE: Frontal and lateral views the right forearm are obtained. COMPARISON: None. FINDINGS: Elbow joint, radial ulnar articulations, and radiocarpal articulations are congruent. No acute fracture or malalignment. No radiographic evidence of a soft tissue abnormality. IMPRESSION: No osseous abnormality of the right forearm. Electronically signed by: Cristobal Church M.D. 07/05/2017 5:00 PM Dictated Date/Time: 07/05/2017 4:59 PM
[2017-07-05 17:20] LABS: BASO % 0.2 %; BASO ABS # 0.01 K/uL (0-0.2); COMPLETE YES; EOS % 2.1 %; HEMATOCRIT 46.8 % (42-52); IG% 0.2 %; LYMPH % 35.5 %; LYMPH ABS # 1.66 K/uL (1.2-3.4); MEAN CELL VOLUME 91.2 fL (80-100); MEAN CORPUSCULAR HEMOGLOBIN 32.6 pg (25-34); MEAN CORPUSCULAR HGB CONC 35.7 g/dl (32-36); MEAN PLATELET VOLUME 11.4 fL (7.4-10.4); MONO % 7.7 %; NEUT % 54.3 %; PLATELET COUNT 201 K/uL (130-400); RED BLOOD COUNT 5.13 M/uL (4.7-6.1); WHITE BLOOD COUNT 4.68 K/uL (4.8-10.8)
[2017-07-05 17:44] LABS: ALT/SGPT 75 U/L (12-78); BLOOD UREA NITROGEN 14 mg/dl (7-18); BUN/CREATININE RATIO 11.7 (10-20); CALCIUM 9.2 mg/dl (8.5-10.1); CARBON DIOXIDE 26 mmol/L (21-32); CHLORIDE 105 mmol/L (98-107); CREATININE 1.16 mg/dl (0.60-1.40); GLUCOSE 89 mg/dl (70-99); POTASSIUM 3.7 mmol/L (3.5-5.1); SODIUM 138 mmol/L (136-145)
[2017-07-05 17:48] LABS: ALKALINE PHOSPHATASE 103 U/L (45-117); AST/SGOT 37 U/L (15-37)
[2017-07-05] MEDS ORDERED: ASPIRIN 81 MG CHEW PO STA (18:18)
[2017-07-05 18:42] LABS: URINE APPEARANCE CLEAR (CLEAR); URINE BILIRUBIN NEG (NEG); URINE COLOR DK YELLOW; URINE NITRITE NEG (NEG); URINE SPECIFIC GRAVITY 1.034 (1.000-1.030); UROBILINOGEN NEG (NEG); ZZUR CULT IF INDIC CLEAN CATCH NO
[2017-07-05] MEDS ORDERED: ROPINIROLE HCL 0.25 MG TAB PO PRN (18:45)
[2017-07-05] MEDS ORDERED: ACETAMINOPHEN 325 MG TAB PO PRN (18:45)
[2017-07-05] MEDS ORDERED: DICYCLOMINE HCL 10 MG CAP PO PRN (18:45)
[2017-07-05] MEDS ORDERED: MAGNESIUM HYDROXIDE SUSP 30 ML UDC PO PRN (18:45)
[2017-07-05] MEDS ORDERED: TRAZODONE HCL 50 MG TAB PO PRN (18:45)
[2017-07-05] MEDS ORDERED: ONDANSETRON INJ 2 MG/ML 2 ML VIAL IV PRN (18:45)
[2017-07-05] MEDS ORDERED: ALUMINUM/MAGNESIUM/SIMETH (MAALOX MAX) 30 ML UDC PO PRN (18:45)
[2017-07-05 19:04] LABS: MANUAL MICROSCOPIC REQUIRED? NO; REVIEW REQ? NO
[2017-07-05 19:06] LABS: BENZODIAZEPINE, URINE NEG (NEG); COCAINE,URINE NEG (NEG); PHENCYCLIDINE, URINE NEG (NEG)
--- NOTE | 2017-07-05 19:35 | History and Physical ---
History & Physical Date & Time of Service: Jul 05, 2017 at 19:18 Chief Complaint: Nausea, Rt Arm Numbness Primary Care Physician: Luz Maria Zendejas M.D. History of Present Illness Source: patient, clinic records, hospital records This is a 32 year old male with a PMH of depression, suicidal ideation, ADHD, migraines, restless leg syndrome - presents with R arm numbness/tingling and muscle spasms/contractures. Has had eight episodes today (07/05). Since presenting here no issues with the arm. No other problems/issues to note. Denies muscle weakness, denies headache (does get migraines and gets botox injections), no chest pain/shortness of breath. Past Medical/Surgical History Medical Problems: (1) Abrasion of right thumb Status: Resolved (2) Acid reflux Status: Chronic (3) ADHD Status: Chronic (4) Anxiety Status: Chronic (5) Attention deficit hyperactivity disorder Status: Chronic (6) Encounter for removal of sutures Status: Resolved (7) Flank pain Status: Resolved (8) Foreign body, eye Status: Resolved (9) Foreign body, eye Status: Resolved (10) Gastroesophageal reflux disease Status: Chronic (11) Injury of right foot Status: Resolved (12) IRRITABLE BOWEL SYNDROME Status: Chronic (13) Kidney stone Status: Resolved (14) Kidney stone Status: Resolved (15) Laceration of left foot Status: Resolved (16) Laceration of left foot Status: Resolved (17) Migraine headache Status: Chronic (18) Right shoulder injury Status: Resolved (19) Urinary retention Status: Resolved Family History FH: cancer FH: diabetes mellitus FH: gallbladder disease FH: heart disease FH: hypertension FH: lung disease FH: seizures No significant family history Social History Smoking Status: Never Smoker Drug Use: none Marital Status: Housing status: lives with family Occupational Status: disabled Multi-Drug Resistant Organisms History of MDRO: No Allergies Coded Allergies: Tramadol (Unverified Allergy, Intermediate, HALLUCINATIONS, 06/27/17) Hydrocodone (Verified Adverse Reaction, Unknown, "SEES LITTLE GREEN MARTAINS, ROOM SPINS", 06/27/17) Home Medications Scheduled Alfuzosin HCl (Alfuzosin HCl ER), 10 MG PO DAILY Amphetamine-Dextroamphetamine 10MG (Adderall Xr 10MG), 10 MG PO QAM Amphetamine-Dextroamphetamine 30MG (Adderall Xr 30MG), 30 MG PO QAM Bupropion HCl (Bupropion HCl Xl), 300 MG PO DAILY Buspirone Hcl (Buspirone Hcl), 15 MG PO BID Folic Acid-Vitamin B6-Vitamin (Folplex 2.2), 1 TAB PO DAILY Lamotrigine (Lamotrigine), 25 MG PO BID Tamsulosin Hcl (Flomax), 0.4 MG PO DAILY Scheduled PRN Dicyclomine Hcl (Dicyclomine Hcl), 10 MG PO BID PRN for Abdominal Pain Ropinirole Hydrochloride (Requip), 0.5 MG PO BID PRN for Restless Legs Trazodone Hcl (Trazodone), 25-50 MG PO HS PRN for Sleep Review of Systems Constitutional: No fever, No chills, No weakness Respiratory: No cough, No sputum, No wheezing, No shortness of breath, No dyspnea on exertion, No dyspnea at rest, No hemoptysis Cardiovascular: No chest pain Abdomen: No pain, No nausea, No vomiting, No diarrhea Genitourinary - Male: No hematuria, No dysuria, No urinary frequency Neurologic: + weakness, + numbness/tingling Psychiatric: + depression symptoms, + anxiety (controlled with medications), No insomnia, No substance abuse Endocrine: No fatigue Hematologic / Lymphatic: No abnormal bleeding/bruising Integumentary: No rash Allergic / Immunologic: No environmental allergies, No seasonal allergies Physical Exam Vital Signs Date Time Temp Pulse Resp B/P (MAP) Pulse Ox O2 Delivery O2 Flow Rate FiO2 07/05/17 19:00 37.2 86 16 132/83 100 07/05/17 18:07 86 16 132/83 100 Room Air 07/05/17 15:57 37.2 94 16 120/79 98 Room Air General Appearance: no apparent distress Head: normocephalic, atraumatic Eyes: normal inspection ENT: + pertinent finding (edentulous) Neck: supple Respiratory/Chest: chest non-tender, lungs clear, normal breath sounds, no respiratory distress, no accessory muscle use Cardiovascular: regular rate, rhythm, no edema, no gallop, no JVD, no murmur, normal peripheral pulses Abdomen/GI: normal bowel sounds, non tender, soft, no organomegaly Back: no muscle spasm Extremities/Musculoskelatal: normal inspection, no calf tenderness, normal capillary refill, no pedal edema, normal range of motion Neurologic/Psych: segment block layer II-XII nml as tested, no motor/sensory deficits, alert, normal mood/affect, oriented x 3 Skin: normal color Lymphatic: no adenopathy Diagnostics Laboratory Results Results Past 24 Hours Test 07/05/17 16:47 07/05/17 17:30 Range/Units White Blood Count 4.68 4.8-10.8 K/uL Red Blood Count 5.13 4.7-6.1 M/uL Hemoglobin 16.7 14.0-18.0 g/dL Hematocrit 46.8 42-52 % Mean Corpuscular Volume 91.2 80-100 fL Mean Corpuscular Hemoglobin 32.6 25-34 pg Mean Corpuscular Hemoglobin Concent 35.7 32-36 g/dl Platelet Count 201 130-400 K/uL Mean Platelet Volume 11.4 7.4-10.4 fL Neutrophils (%) (Auto) 54.3 % Lymphocytes (%) (Auto) 35.5 % Monocytes (%) (Auto) 7.7 % Eosinophils (%) (Auto) 2.1 % Basophils (%) (Auto) 0.2 % Neutrophils # (Auto) 2.54 1.4-6.5 K/uL Lymphocytes # (Auto) 1.66 1.2-3.4 K/uL Monocytes # (Auto) 0.36 0.11-0.59 K/uL Eosinophils # (Auto) 0.10 0-0.5 K/uL Basophils # (Auto) 0.01 0-0.2 K/uL RDW Standard Deviation 42.5 36.4-46.3 fL RDW Coefficient of Variation 12.8 11.5-14.5 % Immature Granulocyte % (Auto) 0.2 % Immature Granulocyte # (Auto) 0.01 0.00-0.02 K/uL Sodium Level 138 136-145 mmol/L Potassium Level 3.7 3.5-5.1 mmol/L Chloride Level 105 98-107 mmol/L Carbon Dioxide Level 26 21-32 mmol/L Anion Gap 7.0 3-11 mmol/L Blood Urea Nitrogen 14 7-18 mg/dl Creatinine 1.16 0.60-1.40 mg/dl Est Creatinine Clear Calc Drug Dose 100.6 ml/min Estimated GFR () 94.7 Estimated GFR (Non- 81.7 BUN/Creatinine Ratio 11.7 10-20 Random Glucose 89 70-99 mg/dl Calcium Level 9.2 8.5-10.1 mg/dl Total Bilirubin 0.4 0.2-1 mg/dl Direct Bilirubin < 0.1 0-0.2 mg/dl Aspartate Amino Transf (AST/SGOT) 37 15-37 U/L Alanine Aminotransferase (ALT/SGPT) 75 12-78 U/L Alkaline Phosphatase 103 45-117 U/L Total Protein 7.3 6.4-8.2 gm/dl Albumin 4.5 3.4-5.0 gm/dl Lipase 139 73-393 U/L Urine Color DK YELLOW Urine Appearance CLEAR CLEAR Urine pH 5.0 4.5-7.5 Urine Specific [place] 1.034 1.000-1.030 Urine Protein NEG NEG Urine Glucose (UA) NEG NEG Urine Ketones TRACE NEG Urine Occult Blood NEG NEG Urine Nitrite NEG NEG Urine Bilirubin NEG NEG Urine Urobilinogen NEG NEG Urine Leukocyte Esterase TRACE NEG Urine WBC (Auto) 1-5 0-5 /hpf Urine RBC (Auto) 0-4 0-4 /hpf Urine Hyaline Casts (Auto) 1-5 0-5 /lpf Urine Epithelial Cells (Auto) 5-10 0-5 /lpf Urine Bacteria (Auto) NEG NEG Urine Opiates Screen NEG NEG Urine Methadone, Qualitative NEG NEG Urine Barbiturates NEG NEG Urine Phencyclidine (PCP) Level NEG NEG Ur Amphetamine/Methamphetamine POS NEG MDMA (Ecstasy) Screen POS NEG Urine Benzodiazepines Screen NEG NEG Urine Cocaine Metabolite NEG NEG Urine Marijuana (THC) NEG NEG Diagnostic Radiology HEAD CT NONCONTRAST CT DOSE: 729.78 mGycm HISTORY: r arm cramping/weak TECHNIQUE: Multiaxial CT images of the head were performed without the use of intravenous contrast. Automated exposure control was utilized for this study. A dose lowering technique was utilized adhering to the principles of ALARA. Comparison: Head CT 07/28/2016. Findings: The paranasal sinuses and mastoid air cells are clear. The calvarium and skull base are intact. The ventricles and sulci are within normal limits. There is no mass, hematoma, midline shift, or acute infarct. Impression: No acute intracranial abnormality. CHEST ONE VIEW PORTABLE CLINICAL HISTORY: 32 years-old Male presenting with r arm cramping . TECHNIQUE: Portable upright AP view of the chest was obtained. COMPARISON: None. FINDINGS: Cardiomediastinal silhouette normal. Lungs and pleural spaces clear. Osseous structures normal. Upper abdomen normal. IMPRESSION: 1. No acute cardiopulmonary disease. R FOREARM 2 VIEWS ROUTINE CLINICAL HISTORY: 32 years-old Male presenting with r mid arm pain. TECHNIQUE: Frontal and lateral views the right forearm are obtained. COMPARISON: None. FINDINGS: Elbow joint, radial ulnar articulations, and radiocarpal articulations are congruent. No acute fracture or malalignment. No radiographic evidence of a soft tissue abnormality. IMPRESSION: No osseous abnormality of the right forearm. EKG Normal sinus rhythm Normal ECG Impression Assessment and Plan This is a 32 year old male with a PMH of depression, suicidal ideation, ADHD, migraines, restless leg syndrome - presents with R arm numbness/tingling and muscle spasms/contractures. R Arm Numbness/Tingling/Paresthesias r/o CVA as per neurology Head CT negative will check a Brain MRI PT/OT/speech u-tox pending check Mg, B12, TSH level consulted neurology for further input ADHD continue current medications Depression/Anxiety was at [facility] last week due to suicidal ideation Buspar was the only recent change in medication, increased to 15mg BID Denies suicidal ideation continue current medications FULL CODE VTE Prophylaxis VTE Risk Assessment Done? Y/N: Yes Risk Level: Low Given or contraindicated: Treatment not indicated
--- NOTE | 2017-07-05 19:41 | DIAGNOSTIC IMAGING REPORT ---
BRAIN WITHOUT CONTRAST CLINICAL HISTORY: 32 years-old Male presenting with r/o cva, right arm numbness since 11:30 PM yesterday, no injury, no surgery, no history of cancer, no history of stroke. TECHNIQUE: Multisequence, multiplanar MR imaging of the brain was performed without the use of intravenous contrast. IV contrast: None. COMPARISON: CT head performed earlier the same day. FINDINGS: Ventricles and sulci normal in size. Brain parenchyma normal in appearance with preserved hooks-white differentiation. No mass effect or midline shift. Allowing for degradation of diffusion-weighted imaging secondary to motion artifact, no restricted diffusion to suggest acute ischemia. No hemorrhage. No extra-axial fluid collection. T2 skull base flow voids preserved. Bone marrow signal intensity within the calvarium within normal limits. IMPRESSION: 1. No acute intracranial abnormality. Electronically signed by: Cristobal Church M.D. 07/05/2017 7:40 PM Dictated Date/Time: 07/05/2017 7:37 PM
[2017-07-05 19:50] VITALS: BP 131/88; PULSE 81; TEMP 36.7; O2SAT 100; Ht 177.8 cm; Wt 88.7 kg
[2017-07-05] MEDS ORDERED: AMPH30CA3 PO (19:58)
[2017-07-05] MEDS ORDERED: AMPH10CA3 PO (19:58)
[2017-07-05] MEDS ORDERED: ROPI0.5T PO (21:16)
[2017-07-05] MEDS ORDERED: TRAZ50TA35 PO (21:33)
[2017-07-05] MEDS ORDERED: LMC25 PO (21:33)
[2017-07-05] MEDS: BusPIRone 15 MG TAB PO SCH (21:45)
[2017-07-05 23:00] VITALS: BP 107/71; PULSE 89; TEMP 36.8; O2SAT 99
[2017-07-06 05:07] VITALS: BP 129/81; PULSE 82; TEMP 36.6; O2SAT 99
[2017-07-06 06:31] LABS: HEMATOCRIT 44.9 % (42-52); MEAN CELL VOLUME 92.4 fL (80-100); MEAN CORPUSCULAR HEMOGLOBIN 31.9 pg (25-34); MEAN CORPUSCULAR HGB CONC 34.5 g/dl (32-36); PLATELET COUNT 161 K/uL (130-400); RED BLOOD COUNT 4.86 M/uL (4.7-6.1); WHITE BLOOD COUNT 4.01 K/uL (4.8-10.8)
[2017-07-06 07:11] VITALS: BP 129/87; PULSE 76; TEMP 36.8; O2SAT 100
[2017-07-06 07:16] LABS: BUN/CREATININE RATIO 11.7 (10-20); CALCIUM 8.7 mg/dl (8.5-10.1); CREATININE 1.09 mg/dl (0.60-1.40); MAGNESIUM 2.2 mg/dl (1.8-2.4); POTASSIUM 3.9 mmol/L (3.5-5.1)
[2017-07-06] MEDS: [UNRECOGNIZED DRUG - REMARK] SCH ×2 (07:21)
[2017-07-06 07:27] LABS: THYROID STIMULATING HORMONE 1.17 uIu/ml (0.300-4.500)
[2017-07-06] MEDS: BusPIRone 15 MG TAB PO SCH (07:40)
[2017-07-06] MEDS ORDERED: NURSING VERBAL MED ORDER ONE (07:45)
[2017-07-06] MEDS ORDERED: AMPHETAMINE ASP/SULF/DEXTRAMPH ER 20 MG CAP PO SCH ×2 (08:00→09:00)
[2017-07-06] MEDS ORDERED: AMPHETAMINE DEXTROAMPHETAMINE PO SCH (09:00)
[2017-07-06] MEDS ORDERED: BuPROPion XL 300 MG TABCR PO SCH (09:00)
[2017-07-06] MEDS ORDERED: TAMSULOSIN HCL 0.4 MG CAP PO SCH (09:00)
[2017-07-06] MEDS ORDERED: ALFUZosin TAB 10 MG TAB PO SCH (09:00)
[2017-07-06] MEDS ORDERED: GADAVIST IV PRN (12:20)
--- NOTE | 2017-07-06 12:48 | NEUROLOGY CONSULTATION ---
DATE OF CONSULTATION: 07/06/2017 DATE OF CONSULTATION: 07/06/2017 REASON FOR CONSULTATION: Right arm numbness. HISTORY OF PRESENT ILLNESS: Mr. Rodriguez is a 32-year-old left-handed male with history of depression, ADHD, migraines, restless leg syndrome, and essential tremor presented with several episodes of right arm numbness, tingling and pain. The patient underwent Botox injection 2 days prior to his symptoms. He noted pain in the right wrist and forearm then numbness and tingling in the entire right arm, lasting approximately 10 minutes, occurring 8 times during the day. He did have a left retroorbital throbbing headache yesterday, although does not recall the association with the neurologic symptoms. He has a history of classic migraines. He will often get tingling in the ipsilateral face to the migrainous pain. There was no change in vision, scintillating visual phenomenon, change in speech, language, dizziness, vertigo. There was no associated weakness. There was no neck pain, no Lhermitte's phenomenon. No lower extremity symptoms. There was no chest pain, palpitations or shortness of breath. He has not had any recent head or neck trauma. He did receive Botox for the 4th time in the supraspinatus two days prior. He had not recently been ill. He had not had any recent vaccines. He has no prior history of neurologic dysfunction, although he does have some bladder issues. He has not had any recent head or neck trauma. His weight has been stable to increased. His BuSpar was increased in dose last week. There was no uncontrolled jerking. There was mild cramping and there was no confusion. PAST MEDICAL HISTORY: As above. Additionally, he has kidney stones. No history of asthma. SURGICAL HISTORY: Lumbar surgery. SOCIAL HISTORY: Nonsmoker, nondrinker. He is on disability for ADHD. FAMILY HISTORY: Father has essential tremor. Father and brother have seizure. His mother has hypertension. He indicates that mother's sisters have heart disease but he is not more specific. There is no personal history or family history of DVT. ALLERGIES: Tramadol and hydrocodone. MEDICATIONS: His meds at home are Alfuzosin, Adderall, bupropion, BuSpar, ____, Lamictal, tamsulosin and p.r.n. dicyclomine, Requip and trazadone. REVIEW OF SYSTEMS: As above. Additionally, no hematuria, dysuria, depression symptoms, anxiety. No allergies. His evaluation has included a normal MRI of the brain. LABORATORY DATA: White count 4.0, H&H and platelet count normal. Chemistry: Glucose, BUN, creatinine, transaminases normal, TSH normal, B12 1504. Urinalysis trace leukocyte esterase, trace ketones. Toxicology positive for amphetamines and MNDA. PHYSICAL EXAMINATION: VITAL SIGNS: 36.8, 76, 20, 129/87, 100%. Electrocardiogram, sinus rhythm. GENERAL: He is a well-developed male in no distress, alert and oriented x3. Affect appropriate. No speech or language dysfunction. There are no carotid bruits. HEART: No heart. Heart is regular rate and rhythm. LUNGS: Clear. NECK: Supple. The right shoulder is depressed compared to the left shoulder. Spurling's maneuver is negative. Tinel's and Phalen's are negative at the wrist. Radial pulses are palpably symmetric. Pupils are equal, round, reactive to light. The optic nerves are unremarkable. There is normal field, motility, facial sensation and facial symmetry. Speech is normal. NEUROLOGIC: The patient is edentulous. Tongue is midline. Sternocleidomastoid and trapezius seem full in spite of the shoulder drop on the right. Parenthetically no Tato syndrome and is noted. Motor: Full strength, no drift. Normal rapid alternating movements. Normal bulk and tone. Symmetric reflexes. Downgoing toes. Mild tremor on intention. [id number] normal. Sensation intact to light touch, temperature and vibration. Gait and tandem are normal. IMPRESSION: Right arm paresthesias, suspect Botox affect versus acephalgic migrainous phenomenon, less likely brachial plexopathy, cervical radiculopathy, cervical plaque. Symptoms are not typical for a brachial plexopathy, which is typically very painful and persistent. PLAN: To complete central workup, carotid ultrasound, MRI cervical spine with and without, rule out disc plaque. Provided this workup is unremarkable he may be discharged. If the symptoms are persistent we should perform a nerve conduction EMG. Would depend on this setting. I would also consider potentially prophylaxing him with medication for migraine. I would also recommend that he discuss this reaction with pain management. They may want to avoid injecting in the region of the supraspinatus. If symptoms persist the patient should see me in followup. MTDD
--- NOTE | 2017-07-06 13:10 | DIAGNOSTIC IMAGING REPORT ---
CERVICAL SPINE MRI WITH AND WITHOUT CONTRAST HISTORY: recurrent R arm pain numbness, no neck pain r/o plaque to assess for multiple sclerosis TECHNIQUE: Multiplanar multisequence MRI of the cervical spine was performed both before and after the use of intravenous contrast. COMPARISON STUDY: None. FINDINGS: Straightening of the cervical spine. Alignment is intact. No fracture or subluxation. Prevertebral soft tissues and the C1-C2 interval are maintained. The cervical spinal cord is normal in signal intensity. No abnormal enhancement. C2-C3: No significant central canal or neural foraminal narrowing. C3-C4: No significant central canal or neural foraminal narrowing. C4-C5: No significant central canal or neural foraminal narrowing. C5-C6: Focal central disc protrusion which abuts and slightly deforms anterior cord. No neural foraminal narrowing. C6-C7: Small left paracentral focal disc protrusion which results in near-complete effacement of the left anterior thecal sac without cord deformity. No neural foraminal narrowing. C7-T1: No significant central canal or neural foraminal narrowing. IMPRESSION: 1. No spinal cord lesions identified. No abnormal enhancement. 2. Focal central disc protrusion at C5-C6 which abuts and slightly deforms the anterior cord. 3. Small left paracentral focal disc protrusion at C6-C7 without cord deformity. Electronically signed by: Elliot Gonzalez M.D. 07/06/2017 1:08 PM Dictated Date/Time: 07/06/2017 1:02 PM
--- NOTE | 2017-07-06 13:13 | DIAGNOSTIC IMAGING REPORT ---
BILATERAL CAROTID DOPPLER STUDY HISTORY: Right arm weakness. COMPARISON: None. TECHNIQUE: Real-time, grayscale, and color Doppler sonography of the carotid arteries was performed. Imaging reviewed in the transverse and longitudinal planes. All measurements were calculated based on NASCET criteria. FINDINGS: Antegrade flow is seen in the bilateral vertebral arteries. The brachial pressures are hemodynamically similar. No calcified plaque. The peak systolic velocity within the right ICA is 110 cm/s. The right systolic ratio is 1.2. The peak systolic velocity within the left ICA is 92 cm/s. The left systolic ratio is 1.1. IMPRESSION: No hemodynamically significant stenosis seen within the carotid arteries. Electronically signed by: Elliot Gonzalez M.D. 07/06/2017 1:12 PM Dictated Date/Time: 07/06/2017 1:09 PM
--- NOTE | 2017-07-06 13:33 | Discharge Instructions ---
Discharge Instructions Date of Service Jul 06, 2017. Admission Reason for Admission: Right Arm Numbness Discharge Discharge Diagnosis / Problem: R arm numbness Discharge Goals Goal(s): Prevent Disease Progression Activity Recommendations Activity Limitations: per Instructions/Follow-up section . Instructions / Follow-Up Instructions / Follow-Up Please continue all medications as prescribed. It is recommended that you discuss your symptoms with your equipment sales specialist so they can discuss the risks/benefits of future Botox injections in the shoulder area with you. If your symptoms persist, you can be referred to see Dr. Karon Damon as an outpatient, at the [facility] group here in [facility]. This referral will need to come from your primary care physician's office. You have an appointment with Grace Arreola PA-C for hospital follow-up on 07/10 @ 10:35 at the [facility] location. Please bring all paperwork from discharge with you to this appointment. It was a pleasure taking care of you! Call if you have any questions or problems. You can reach a [facility] hospitalist on duty at [facility] 24 hours a day by calling [phone]. Take care of yourself. Ce Montejo DO [facility] Hospitalist Current Hospital Diet Patient's current hospital diet: Regular Diet Discharge Diet Recommended Diet: Regular Diet Procedures Procedures Performed: MRI brain MRI c-spine Carotid u/s Pending Studies Studies pending at discharge: no Medical Emergencies . Who to Call and When: Medical Emergencies: If at any time you feel your situation is an emergency, please call 911 immediately. . Non-Emergent Contact Non-Emergency issues call your: Primary Care Provider . . "Provider Documentation" section prepared by Ce Montejo. . VTE Core Measure Inpt VTE Proph given/why not?: Treatment not indicated
[2017-07-06 13:57] VITALS: BP 129/87; PULSE 76; TEMP 36.8; O2SAT 100
--- NOTE | 2017-07-06 18:24 | Discharge Summary ---
Discharge Summary Date of Service Jul 06, 2017. Discharge Summary Admission Date: Jul 05, 2017 at 18:39 Discharge Date: Jul 06, 2017 Discharge Disposition: Home Principal Diagnosis: R arm numbness-transient with spontaneous resolution Procedures: None. Vaccinations: None. Consultations: Neurology-Karon Damon Pending Studies/Follow-Up: see instructions below. Medication Reconciliation Continued Medications: Alfuzosin HCl (Alfuzosin HCl ER) 10 Mg Tab 10 MG PO DAILY Amphetamine-Dextroamphetamine 10MG (Adderall Xr 10MG) 1 Cap Cap 10 MG PO QAM, CAP Amphetamine-Dextroamphetamine 30MG (Adderall Xr 30MG) 1 Cap Cap 30 MG PO QAM, CAP Bupropion HCl (Bupropion HCl Xl) 300 Mg Tabcr 300 MG PO DAILY Buspirone Hcl (Buspirone Hcl) 10 Mg Tab 15 MG PO BID, TAB Dicyclomine Hcl (Dicyclomine Hcl) 10 Mg Cap 10 MG PO BID PRN for Abdominal Pain Folic Acid-Vitamin B6-Vitamin (Folplex 2.2) 1 Tab Tab 1 TAB PO DAILY Lamotrigine (Lamotrigine) 25 Mg Tab 25 MG PO BID Ropinirole Hydrochloride (Requip) 0.5 Mg Tab 0.5 MG PO BID PRN for Restless Legs Tamsulosin Hcl (Flomax) 0.4 Mg Cap 0.4 MG PO DAILY, CAP Trazodone Hcl (Trazodone) 50 Mg Tab 25-50 MG PO HS PRN for Sleep TAKE 30 MINUTES BEFORE BEDTIME IF NEEDED FOR SLEEP Admission Information HPI (per Admitting provider): This is a 32 year old male with a PMH of depression, suicidal ideation, ADHD, migraines, restless leg syndrome - presents with R arm numbness/tingling and muscle spasms/contractures. Has had eight episodes today (07/05). Since presenting here no issues with the arm. No other problems/issues to note. Denies muscle weakness, denies headache (does get migraines and gets botox injections), no chest pain/shortness of breath. Physical Exam (per Admitting): General Appearance: no apparent distress Head: normocephalic, atraumatic Eyes: normal inspection ENT: + pertinent finding (edentulous) Neck: supple Respiratory/Chest: chest non-tender, lungs clear, normal breath sounds, no respiratory distress, no accessory muscle use Cardiovascular: regular rate, rhythm, no edema, no gallop, no JVD, no murmur , normal peripheral pulses Abdomen/GI: normal bowel sounds, non tender, soft, no organomegaly Back: no muscle spasm Extremities/Musculoskelatal: normal inspection, no calf tenderness, normal capillary refill, no pedal edema, normal range of motion Neurologic/Psych: 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 Workup included an MRI brain which was normal, carotid u/s which was normal and a c- spine MRI which revealed some spinal cord compression but no change in signal intensity so this was thought unrelated to symptoms, which had resolved overnight. He was seen by Neurology who thought symptoms were related to Botox injections which he had recently gotten for migraine prophylaxis. His R shoulder was sitting slightly lower than his left when at rest so this was felt in support of this. He was not considered to have a TIA or stroke and no medication adjustments were made. On day of discharge he was afebrile and hemodynamically stable with resolution of symptoms. He was ambulating and mentating at baseline and was tolerating PO. 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 Total time spent on discharge = 60 minutes This includes examination of the patient, discharge planning, medication reconciliation, and communication with other providers. [place] [address] Discharge Medical Patient Name: Thom Rodriguez Unit Number: [id number] Date of : 1985 Patient Status: Discharged Inpatient Attending Doctor: Ce Montejo DO DI: Medical v4 Discharge Instructions Date of Service Jul 06, 2017. Admission Reason for Admission: Right Arm Numbness Discharge Discharge Diagnosis / Problem: R arm numbness Discharge Goals Goal(s): Prevent Disease Progression Activity Recommendations Activity Limitations: per Instructions/Follow-up section . Instructions / Follow-Up Instructions / Follow-Up Please continue all medications as prescribed. It is recommended that you discuss your symptoms with your retail specialist so they can discuss the risks/benefits of future Botox injections in the shoulder area with you. If your symptoms persist, you can be referred to see Dr. Karon Damon as an outpatient, at the [facility] Neurology group here in [facility]. This referral will need to come from your primary care physician's office. You have an appointment with Grace Arreola PA-C for hospital follow-up on 07/10 @ 10:35 at the [facility] location. Please bring all paperwork from discharge with you to this appointment. It was a pleasure taking care of you! Call if you have any questions or problems. You can reach a [facility] hospitalist on duty at [facility] 24 hours a day by calling [phone]. Take care of yourself. Ce Montejo DO [facility] Hospitalist Current Hospital Diet Patient's current hospital diet: Regular Diet Discharge Diet Recommended Diet: Regular Diet Procedures Procedures Performed: MRI brain MRI c-spine Carotid u/s Pending Studies Studies pending at discharge: no Medical Emergencies . Who to Call and When: Medical Emergencies: If at any time you feel your situation is an emergency, please call 911 immediately. . Non-Emergent Contact Non-Emergency issues call your: Primary Care Provider . . "Provider Documentation" section prepared by Ce Montejo. . VTE Core Measure Inpt VTE Proph given/why not?: Treatment not indicated Additional Copies To Grace Arreola PA; Luz Maria Zendejas M.D.
== END 2017-07-06 14:05 | disposition home or self-care (01) | DRG 92 ==
LOC: C.EDB 15:51 → C.MED 18:39 → ENRESERV 18:52
PROVIDERS: ADMIT Family Medicine; ATTEND Hospitalist
DX: R20.2 Paresthesia of skin (principal); R45.851 Suicidal ideations; G25.81 Restless legs syndrome; F90.9 Attention-deficit hyperactivity disorder, unspecified type; K21.9 Gastro-esophageal reflux disease without esophagitis; F32.9 Major depressive disorder, single episode, unspecified; Z79.899 Other long term (current) drug therapy; T48.295A Adverse effect of other drugs acting on muscles, initial encounter

== ENCOUNTER 2017-11-07 03:51 | Emergency (ER) | payer OTHER ==
[~2017-11-07] VITALS: Ht 177.8 cm; Wt 96.9 kg
[~2017-11-07 03:51] MED LIST changes: -ALFU10TA2 PO; +AMPH10CA3 PO; +AMPH30CA3 PO; -BSP/10 PO; -BUPRTAB51 PO; +BUSP-8 PO; +FOLITAB19 PO; +HYDR-3126 PO; +LMC25 PO; +PRAZ1CAP10 PO; +ROPI0.5T PO; +TRAZ50TA35 PO; +URX/10 PO; +WLLXL300 PO
[2017-11-07 03:55] VITALS: TEMP 36.7; Ht 177.8 cm; Wt 96.9 kg
[2017-11-07] MEDS ORDERED: SODIUM CHLORIDE 0.9% 1000ML 1,000 ML IV STA (04:06)
[2017-11-07] MEDS ORDERED: ONDANSETRON INJ 2 MG/ML 2 ML VIAL IV STA ×2 (04:06→05:54)
--- NOTE | 2017-11-07 04:14 | EMERGENCY ROOM VISIT NOTE ---
History Report prepared by Zack: Makayla Cortes Under the Supervision of: Dr. Loretta Hough D.O. First contact with patient: 04:00 Chief Complaint: VOMITING Stated Complaint: SICK-VOMITING History of Present Illness The patient is a 32 year old male who presents to the Emergency Room with complaints of sudden vomiting starting 6 hours ago. The patient states that he had an upset stomach throughout the day yesterday, but is normal for him. He reports that he was not able to eat dinner because his stomach was so upset, but he ate a little watermelon. The patient complains of diarrhea, nausea, and abdominal pain that is from vomiting. The patient denies anyone else at home being sick, eating anything out of the ordinary, and urinary symptoms. The patient notes a history of bronchitis. He states that sometimes his blood pressure is high, but he is not on medications for it yet. He notes that he takes a urine pill to help him empty his bladder completely since he has a history of a hard time empting it. Source of History: patient Onset: 6 hours ago Position: other (global) Quality: other (vomiting) Timing: other (sudden) Associated Symptoms: + nausea, + abdominal pain, + diarrhea, No urinary symptoms Review of Systems See HPI for pertinent positives & negatives. A total of 10 systems reviewed and were otherwise negative. Past Medical & Surgical Medical Problems: (1) Abrasion of right thumb (2) Acid reflux (3) ADHD (4) Anxiety (5) Anxiety disorder, unspecified (6) Attention deficit hyperactivity disorder (7) Encounter for removal of sutures (8) Flank pain (9) Foreign body, eye (10) Foreign body, eye (11) Gastroesophageal reflux disease (12) Hx of bronchitis (13) Hx of renal calculi (14) Injury of right foot (15) IRRITABLE BOWEL SYNDROME (16) Kidney stone (17) Kidney stone (18) Laceration of left foot (19) Laceration of left foot (20) Migraine headache (21) Right arm numbness (22) Right shoulder injury (23) Urinary retention Family History FH: cancer FH: diabetes mellitus FH: gallbladder disease FH: heart disease FH: hypertension FH: lung disease FH: seizures No significant family history Social History Smoking Status: Never Smoker Alcohol Use: none Drug Use: none Marital Status: Housing Status: lives with family Occupation Status: disabled Current/Historical Medications Scheduled Alfuzosin HCl (Alfuzosin HCl ER), 10 MG PO DAILY Amphetamine-Dextroamphetamine 10MG (Adderall Xr 10MG), 10 MG PO QAM Buspirone Hcl (Buspirone Hcl), 30 MG PO DAILY Dexlansoprazole (Dexilant), 30 MG PO DAILY Folic Acid-Vitamin B6-Vitamin (Folplex 2.2), 1 TAB PO DAILY Lamotrigine (Lamotrigine), 100 MG PO BID Methylphenidate (Ritalin), 40 MG PO DAILY Prazosin Hcl (Prazosin), 3 MG PO HS Scheduled PRN Dicyclomine Hcl (Dicyclomine Hcl), 10 MG PO BID PRN for Abdominal Pain Ondansetron Hcl (Zofran), 4 MG PO Q6H PRN for Nausea Ropinirole Hydrochloride (Requip), 0.5 MG PO BID PRN for Restless Legs Trazodone Hcl (Trazodone), 100 MG PO HS PRN for Sleep Allergies Coded Allergies: Tramadol (Unverified Allergy, Intermediate, HALLUCINATIONS, 11/07/17) Hydrocodone (Verified Adverse Reaction, Unknown, "SEES LITTLE GREEN MARTAINS, ROOM SPINS", 11/07/17) Physical Exam Vital Signs Date Time Temp Pulse Resp B/P (MAP) Pulse Ox O2 Delivery O2 Flow Rate FiO2 11/07/17 06:00 103 16 117/73 96 11/07/17 04:38 93 16 120/77 97 Room Air 11/07/17 03:55 36.7 109 16 114/64 96 Room Air Physical Exam HEENT: Head - normocephalic and atraumatic Pupils are equal, round, and reactive to light. Extraocular eye muscles are intact, and sclera are anicteric. Nose - moist nasal mucosa without discharge. Mouth - moist buccal mucosa. Oropharynx is nonerythematous and there is no tonsillar exudate or edema noted. Neck: Supple; no JVD, nuchal rigidity, cervical lymphadenopathy. Heart: Tachycardic rate and regular rhythm. There is a normal S1 and S2 with no murmurs, clicks, or gallops appreciated. Lungs: Clear to auscultation bilaterally with no wheezes, rales, or rhonchi. Abdomen: Soft, diffusely tender, nondistended, with hyperactive bowel sounds. There are no palpable pulsatile masses or hepatosplenomegaly. There is no guarding, rigidity, or rebound noted. Extremities: No evidence of cyanosis, clubbing, or edema. There are easily palpable peripheral pulses. Skin: warm and dry with good turgor and no rashes. Medical Decision & Procedures Laboratory Results 11/07/17 04:15 Red Blood Count 5.06, Mean Corpuscular Volume 89.9, Mean Corpuscular Hemoglobin 31.0, Mean Corpuscular Hemoglobin Concent 34.5, Mean Platelet Volume 11.3, Neutrophils (%) (Auto) 91.5, Lymphocytes (%) (Auto) 2.5, Monocytes (%) (Auto) 5.0, Eosinophils (%) (Auto) 0.8, Basophils (%) (Auto) 0.1, Neutrophils # (Auto) 6.58, Lymphocytes # (Auto) 0.18, Monocytes # (Auto) 0.36, Eosinophils # (Auto) 0.06, Basophils # (Auto) 0.01 11/07/17 04:15 Test 11/07/17 04:15 11/07/17 05:45 White Blood Count 7.20 K/uL (4.8-10.8) Red Blood Count 5.06 M/uL (4.7-6.1) Hemoglobin 15.7 g/dL (14.0-18.0) Hematocrit 45.5 % (42-52) Mean Corpuscular Volume 89.9 fL (80-100) Mean Corpuscular Hemoglobin 31.0 pg (25-34) Mean Corpuscular Hemoglobin Concent 34.5 g/dl (32-36) Platelet Count 141 K/uL (130-400) Mean Platelet Volume 11.3 fL (7.4-10.4) Neutrophils (%) (Auto) 91.5 % Lymphocytes (%) (Auto) 2.5 % Monocytes (%) (Auto) 5.0 % Eosinophils (%) (Auto) 0.8 % Basophils (%) (Auto) 0.1 % Neutrophils # (Auto) 6.58 K/uL (1.4-6.5) Lymphocytes # (Auto) 0.18 K/uL (1.2-3.4) Monocytes # (Auto) 0.36 K/uL (0.11-0.59) Eosinophils # (Auto) 0.06 K/uL (0-0.5) Basophils # (Auto) 0.01 K/uL (0-0.2) RDW Standard Deviation 42.1 fL (36.4-46.3) RDW Coefficient of Variation 13.0 % (11.5-14.5) Immature Granulocyte % (Auto) 0.1 % Immature Granulocyte # (Auto) 0.01 K/uL (0.00-0.02) Anion Gap 2.0 mmol/L (3-11) Est Creatinine Clear Calc Drug Dose 99.6 ml/min Estimated GFR () 89.1 Estimated GFR (Non- 76.9 BUN/Creatinine Ratio 14.5 (10-20) Calcium Level 8.5 mg/dl (8.5-10.1) Total Bilirubin 0.7 mg/dl (0.2-1) Direct Bilirubin 0.2 mg/dl (0-0.2) Aspartate Amino Transf (AST/SGOT) 70 U/L (15-37) Alanine Aminotransferase (ALT/SGPT) 104 U/L (12-78) Alkaline Phosphatase 97 U/L (45-117) Total Protein 6.7 gm/dl (6.4-8.2) Albumin 3.7 gm/dl (3.4-5.0) Lipase 120 U/L (73-393) Urine Color YELLOW Urine Appearance CLEAR (CLEAR) Urine pH 8.5 (4.5-7.5) Urine Specific [place] 1.021 (1.000-1.030) Urine Protein NEG (NEG) Urine Glucose (UA) NEG (NEG) Urine Ketones NEG (NEG) Urine Occult Blood NEG (NEG) Urine Nitrite NEG (NEG) Urine Bilirubin NEG (NEG) Urine Urobilinogen NEG (NEG) Urine Leukocyte Esterase NEG (NEG) Laboratory results per my review. Medications Administered Medications (Trade) Dose Ordered Sig/Kaden Route Start Time Stop Time Status Last Admin Dose Admin Sodium Chloride 1,000 ml @ 999 mls/hr Q1H1M STAT IV 11/07/17 04:06 11/07/17 05:06 DC 11/07/17 04:36 999 MLS/HR Ondansetron HCl (Zofran Inj) 4 mg NOW STAT IV 11/07/17 04:06 11/07/17 04:09 DC 11/07/17 04:36 4 MG Ondansetron HCl (Zofran Inj) 4 mg NOW STAT IV 11/07/17 05:54 11/07/17 05:55 DC 11/07/17 05:59 4 MG Procedure 0406: Ordered Zofran Inj 4 mg IV, NSS 1000 ml @ 999 mls/hr IV. 0554: Ordered Zofran Inj 4 mg IV. ED Course 0402: Past medical records reviewed. The patient was evaluated in room B11B. A complete history and physical exam was performed. An IV lock was initiated and labs were drawn as above. 0406: Ordered Zofran Inj 4 mg IV, NSS 1000 ml @ 999 mls/hr IV. 0510: I reevaluated the patient and he is feeling better. He is going to try and sip some Gatorade. 0551: I reevaluated the patient and he is still nauseated. He said that this occurs quite frequently to him. His family chimed in that he has to be discharged on the pill form of the antinausea medication. I discussed findings and results with him. 0554: Ordered Zofran Inj 4 mg IV. 0620: He verbalized agreement of the treatment plan. The patient was discharged home. Medical Decision The patient is a 32 year old male who presents to the Emergency Room with complaints of sudden vomiting starting 6 hours ago. Differential diagnoses include viral illness, gastroenteritis, dehydration, ulcers, GERD. LABS: No leukocytosis Stable H&H Normal renal function Glucose 127 Normal lipase AST 70 ALT 104 This is a 32-year-old male patient presents to the emergency department with vomiting and diarrhea. The patient states that the vomiting came first. He was given IV fluids and Zofran here in the emergency department with moderate relief of the nausea. The patient explains that he has had previous episodes similar to this where he had persistent nausea and needed to take Zofran as an outpatient. He was encouraged to rest and take plenty of clear liquids. He can use Imodium if the diarrhea persists. I will give him a prescription for Zofran. Medication Reconcilliation Current Medication List: was personally reviewed by me Blood Pressure Screening Patient's blood pressure: Normal blood pressure Blood pressure disposition: Did not require urgent referral Impression Primary Impression: Gastroenteritis Scribe Attestation The scribe's documentation has been prepared under my direction and personally reviewed by me in its entirety. I confirm that the note above accurately reflects all work, treatment, procedures, and medical decision making performed by me. Departure Information Dispostion Home / Self-Care Prescriptions Ondansetron Hcl (ZOFRAN) 4 Mg Tab 4 MG PO Q6H Y for Nausea, #10 TAB Prov: Loretta Hough D.O. 11/07/17 Referrals Luz Maria Zendejas M.D. (PCP) Forms HOME CARE DOCUMENTATION FORM, IMPORTANT VISIT INFORMATION Patient Instructions [facility] Additional Instructions Rest. Take a bland diet and plenty of clear liquids Take imodium for diarrhea Use zofran - 1 tab. every 4-6 hours for nausea. Follow up with PCP if nausea or diarrhea continues.
[2017-11-07] MEDS ORDERED: DEXL30CA5 PO (04:22)
[2017-11-07] MEDS ORDERED: RTL20 PO (04:23)
[2017-11-07 04:29] LABS: BASO % 0.1 %; BASO ABS # 0.01 K/uL (0-0.2); EOS % 0.8 %; EOS ABS # 0.06 K/uL (0-0.5); HEMATOCRIT 45.5 % (42-52); HEMOGLOBIN 15.7 g/dL (14.0-18.0); IG# 0.01 K/uL (0.00-0.02); LYMPH % 2.5 %; LYMPH ABS # 0.18 K/uL (1.2-3.4); MEAN CELL VOLUME 89.9 fL (80-100); MEAN CORPUSCULAR HGB CONC 34.5 g/dl (32-36); MEAN PLATELET VOLUME 11.3 fL (7.4-10.4); MONO ABS # 0.36 K/uL (0.11-0.59); NEUT % 91.5 %; NEUT ABS # 6.58 K/uL (1.4-6.5); PLATELET COUNT 141 K/uL (130-400); RED CELL DISTRIBUTION WIDTH SD 42.1 fL (36.4-46.3)
[2017-11-07 05:14] LABS: ALBUMIN 3.7 gm/dl (3.4-5.0); CALCIUM 8.5 mg/dl (8.5-10.1); CREATININE 1.22 mg/dl (0.60-1.40); TOTAL PROTEIN 6.7 gm/dl (6.4-8.2)
[2017-11-07 05:19] LABS: POTASSIUM 4.4 mmol/L (3.5-5.1)
[2017-11-07] MEDS ORDERED: ONDA4TAB46 PO (06:06)
[2017-11-07 06:36] VITALS: BP 117/57; PULSE 110; O2SAT 97
== END 2017-11-07 06:37 | disposition home or self-care (01) ==
LOC: C.EDB 03:52
DX: K52.9 Noninfective gastroenteritis and colitis, unspecified (principal); F90.9 Attention-deficit hyperactivity disorder, unspecified type; F41.9 Anxiety disorder, unspecified; Z88.5 Allergy status to narcotic agent

== ENCOUNTER 2017-11-16 19:24 | Emergency (ER) | payer OTHER ==
[~2017-11-16] VITALS: Ht 177.8 cm; Wt 97.5 kg
[~2017-11-16 19:24] MED LIST changes: -AMPH30CA3 PO; +DEXL30CA5 PO; -HYDR-3126 PO; -LMC25 PO; +ONDA4TAB46 PO; -ROPI0.5T PO; +RTL20 PO; -TAMS0.4C38 PO; -TRAZ50TA35 PO; -WLLXL300 PO
[2017-11-16 19:33] VITALS: TEMP 36.8; Ht 177.8 cm; Wt 97.5 kg
[2017-11-16] MEDS ORDERED: LIDO/EPINEPHRINE/SOD BICARB 20 ML VIAL INFIL ONE (19:57)
--- NOTE | 2017-11-16 20:02 | EMERGENCY ROOM VISIT NOTE ---
ED Visit Note First contact with patient: 19:38 This Patient was discussed with the physician certified medical technician assistant, Pavel Hanna PA-C. The pertinent historical and physical exam findings were confirmed. I agree with the studies ordered and with the interpretations of these studies. I agree with the disposition and care plan.
[2017-11-16] MEDS ORDERED: LIDOCAINE 1% BUFFERED INJ 5 ML VIAL INFIL ONE (20:08)
--- NOTE | 2017-11-16 20:17 | EMERGENCY ROOM VISIT NOTE ---
History First contact with patient: 19:38 Chief Complaint: LACERATION/CUT (NON-SUTURE) Stated Complaint: CUT ON FINGER Nursing Triage Summary: pt c/o cut to left pinky and ring finger. occured at 10am. unsure of tetanus shot. no bleeding in triage. History of Present Illness The patient is a 32 year old male who presents to the Emergency Room with complaints of lacerations to his left ring and small finger. The injury happened around 10 AM this morning while tearing down a trailer, and cutting his hand on a piece of aluminum. The patient reports applying pressure dressings, but presents to the emergency department with persistent bleeding. The patient is left-hand dominant. The patient is uncertain of his last tetanus immunization, and rates his discomfort a 7 out of 10. Review of Systems 6 system review was performed and was negative except for pertinent positives and negatives as indicated in history of present illness Past Medical/Surgical History Medical Problems: (1) Abrasion of right thumb (2) Acid reflux (3) ADHD (4) Anxiety (5) Anxiety disorder, unspecified (6) Attention deficit hyperactivity disorder (7) Encounter for removal of sutures (8) Flank pain (9) Foreign body, eye (10) Foreign body, eye (11) Gastroesophageal reflux disease (12) Hx of bronchitis (13) Hx of renal calculi (14) Injury of right foot (15) IRRITABLE BOWEL SYNDROME (16) Kidney stone (17) Kidney stone (18) Laceration of left foot (19) Laceration of left foot (20) Migraine headache (21) Right arm numbness (22) Right shoulder injury (23) Urinary retention Family History FH: cancer FH: diabetes mellitus FH: gallbladder disease FH: heart disease FH: hypertension FH: lung disease FH: seizures No significant family history Social History Smoking Status: Never Smoker Alcohol Use: none Drug Use: none Marital Status: Housing Status: lives with family Occupation Status: disabled Current/Historical Medications Scheduled Alfuzosin HCl (Alfuzosin HCl ER), 10 MG PO DAILY Amphetamine-Dextroamphetamine 10MG (Adderall Xr 10MG), 10 MG PO QAM Buspirone Hcl (Buspirone Hcl), 30 MG PO DAILY Dexlansoprazole (Dexilant), 30 MG PO DAILY Folic Acid-Vitamin B6-Vitamin (Folplex 2.2), 1 TAB PO DAILY Lamotrigine (Lamotrigine), 100 MG PO BID Methylphenidate (Ritalin), 40 MG PO DAILY Prazosin Hcl (Prazosin), 3 MG PO HS Scheduled PRN Dicyclomine Hcl (Dicyclomine Hcl), 10 MG PO BID PRN for Abdominal Pain Ondansetron Hcl (Zofran), 4 MG PO Q6H PRN for Nausea Ropinirole Hydrochloride (Requip), 0.5 MG PO BID PRN for Restless Legs Trazodone Hcl (Trazodone), 100 MG PO HS PRN for Sleep Physical Exam Vital Signs Date Time Temp Pulse Resp B/P (MAP) Pulse Ox O2 Delivery O2 Flow Rate FiO2 11/16/17 19:33 36.8 97 18 138/92 97 Room Air Physical Exam CONSTITUTIONAL: Healthy and well nourished. Alert and oriented X 3 with positive affect. MUSCULOSKELETAL: Examination of the left hand shows a superficial partial thickness dermal laceration to the volar base of the ring finger. This is well approximated and will not require primary closure. Examination of the fifth finger shows a 1 cm volar laceration over the middle phalanx region. The patient has full FDP and FDS effort against resistance. Capillary refill is less than 2 seconds. INTEGUMENTARY: No rash or other significant dermatologic conditions noted. NEUROLOGIC: No focal neurologic deficits noted. Left hand and fingers are sensory intact. Medical Decision & Procedures Medications Administered Medications (Trade) Dose Ordered Sig/Kaden Route Start Time Stop Time Status Last Admin Dose Admin Lidocaine/ Epinephrine (Buffered Xylocaine/ Epinephrine 1% Inj) 20 ml STK-MED ONCE INFIL 11/16/17 19:57 11/16/17 19:58 DC 11/16/17 19:59 20 ML Lidocaine HCl (Buffered Lidocaine 1% Inj) 20 ml STK-MED ONCE INFIL 11/16/17 20:08 11/16/17 20:09 DC 11/16/17 20:13 20 ML Procedure Laceration repair was performed by our physician reading assistant student under my direct supervision. The patient provided verbal consent for laceration repair under local anesthesia. Using buffered 1% lidocaine without epinephrine, good local anesthesia was administered. Peripheral tissue was then cleansed with iodine, then the wound was copiously pressure irrigated with normal saline. Expiration of the wound does not show any underlying foreign debris. The wound was then approximated using 5-0 nylon simple interrupted sutures. A bacitracin dressing was applied. ED Course Patient history and physical exam were performed. Nurse's notes were reviewed. Vital signs were reviewed and were normal. The patient reports that he is uncertain of his last tetanus immunization. Review of his last laceration repair last year shows that the patient indicated that his last tetanus immunization was 5 years prior; therefore, he is within his 10 year window. Laceration repair was performed under local anesthesia. The patient was provided additional verbal and written wound care instructions. Ice and elevation for swelling. Ibuprofen and Tylenol as needed for pain relief. Suture removal in 12-14 days, or seek reevaluation sooner for any signs of wound infection. The patient was happy with plan of care, voiced understanding of all discharge instructions, and denied any significant pain at the time of discharge. The patient was also evaluated by Dr. Luciano, ED attending physician, who agrees with workup and plan of care. Medical Decision Medication Reconcilliation Current Medication List: was personally reviewed by al Blood Pressure Screening Patient's blood pressure: Normal blood pressure Impression Primary Impression: Laceration of left little finger Additional Impression: Laceration of left ring finger Departure Information Dispostion Home / Self-Care Referrals Luz Maria Zendejas M.D. (PCP) Forms HOME CARE DOCUMENTATION FORM, IMPORTANT VISIT INFORMATION Patient Instructions [facility] Additional Instructions Keep wound clean and dry. Do not allow any crusting or dried blood to accumulate on sutures. If this occurs, use a 1:1 solution of hydrogen peroxide/ water on a Q-tip to clean the wound. Use an antibiotic ointment for 3-4 days, then let wound dry. Suture removal in 12-14 days. Return sooner for any signs of infection (increasing redness, swelling, drainage). Ice and elevate for swelling and pain. Ibuprofen 600 mg and Tylenol 1000 mg every 6 hrs for pain. Problem Qualifiers Primary Impression: Laceration of left little finger Encounter type: initial encounter Damage to nail status: without damage Foreign body presence: without foreign body Qualified Codes: S61.217A - Laceration without foreign body of left little finger without damage to nail, initial encounter Additional Impression: Laceration of left ring finger Encounter type: initial encounter Damage to nail status: without damage Foreign body presence: without foreign body Qualified Codes: S61.215A - Laceration without foreign body of left ring finger without damage to nail, initial encounter
[2017-11-16 20:34] VITALS: BP 138/92; PULSE 97; O2SAT 97
[2017-11-16] MEDS ORDERED: AMPH20CA3 PO (20:49)
[2017-11-16] MEDS ORDERED: METH1CAP21 PO (20:49)
[2017-11-16] MEDS ORDERED: WLLXL300 PO (20:49)
[2017-11-16] MEDS ORDERED: BUSP30TA2 PO (20:49)
[2017-11-16] MEDS ORDERED: ROPI0.5T PO (21:16)
[2017-11-16] MEDS ORDERED: LMC25 PO (21:33)
[2017-11-16] MEDS ORDERED: TRAZ50TA35 PO (21:33)
== END 2017-11-16 20:34 | disposition home or self-care (01) ==
LOC: C.EDB 19:25 → C.EDD 20:34
DX: S61.217A Laceration without foreign body of left little finger without damage to nail, initial encounter (principal); S61.215A Laceration without foreign body of left ring finger without damage to nail, initial encounter; W45.8XXA Other foreign body or object entering through skin, initial encounter; Y93.89 Activity, other specified; K21.9 Gastro-esophageal reflux disease without esophagitis; F90.9 Attention-deficit hyperactivity disorder, unspecified type; F41.9 Anxiety disorder, unspecified; K58.9 Irritable bowel syndrome, unspecified; Z87.442 Personal history of urinary calculi; Z79.899 Other long term (current) drug therapy; Z80.9 Family history of malignant neoplasm, unspecified; Z83.3 Family history of diabetes mellitus; Z82.49 Family history of ischemic heart disease and other diseases of the circulatory system; Z82.0 Family history of epilepsy and other diseases of the nervous system